=== PATIENT | female | born 1970 | race African-American/Black ===

== ENCOUNTER 2019-09-24 11:10 | Emergency (ER) | payer OTHER, SELFPAY ==
--- NOTE | ~2019-09-24 | CT_ITS ---
EXAMINATION: CT abdomen pelvis w con DATE: 09/24/2019 12:04 INDICATION: Acute epigastric pain. TECHNIQUE: Computed tomography (CT) of the abdomen and pelvis was performed with 100 mL Omnipaque 350 intravenous contrast. Automated exposure control and iterative reconstruction technique were employe d. The dose-length product was 274.44 mGy-cm. COMPARISON: None. FINDINGS: The visualized portions of the lung bases demonstrate mild atelectasis. No pleural effusion . The heart size is normal. No pericardial effusion. Partially visualized are masses in the breasts m easuring up to 2.4 cm on the left. There is diffuse hepatic steatosis. The gallbladder and spleen are normal. There are calcifications of the pancreas with dilatation of the pancreatic duct, consistent with chronic pancreatitis. There is a 3.2 x 3.0 cm mass in the head of the pancreas. The adrenal glan ds are normal. There are cysts in the kidneys measuring up to 6 mm on the left. There are no dilated loops of bowel. The appendix is normal. There are no pathologically enlarged lymph nodes. There is no free intraperitoneal fluid. There is a left inguinal hernia containing fat. There is an umbilical he rnia containing fat. There is mild lumbar spondylosis. IMPRESSION: 1. Mass in the head of the pancreas, which may be chronic pancreatitis or primary adenocarcinoma. Com parison with any prior outside imaging may be useful. 2. Bilateral breast masses, which may be benign or less likely malignant. A diagnostic mammogram is r ecommended. 3. Diffuse hepatic steatosis. 4. Umbilical hernia containing fat. Left inguinal hernia containing fat. Reviewed, dictated and finalized at location B. IMPRESSION: 1. Mass in the head of the pancreas, which may be chronic pancreatitis or prima ry adenocarcinoma. Comparison with any prior outside imaging may be useful. 2. Bilateral breast masses, which may be benign or less likely malignant. A patrizia gnostic mammogram is recommended. 3. Diffuse hepatic steatosis. 4. Umbilical hernia containing fat. Left inguinal hernia containing fat.
--- NOTE | ~2019-09-24 | XR_ITS ---
EXAMINATION: XR chest 1V portable DATE: 09/24/2019 12:51 INDICATION: Dyspnea. TECHNIQUE: A single frontal view of the chest was obtained. COMPARISON: CT abdomen and pelvis 09/24/2019 FINDINGS: The chest demonstrates clear lungs without pneumonia, pleural effusion, or pneumothorax. Th e heart size is normal. IMPRESSION: 1. No acute cardiopulmonary disease. Reviewed, dictated and finalized at location B.
[2019-09-24 11:14] VITALS: BP 158/100; PULSE 60; RESP 18; TEMP 36.8; O2SAT 100
--- NOTE | 2019-09-24 11:22 | ED.ABDPAIN ---
HPI - Abdominal Pain General Chief Complaint: Abdominal Pain Stated Complaint: acute stomach pain Time Seen by Provider: 09/24/19 11:21 Source: patient Mode of arrival: ambulatory Limitations: no limitations History of Present Illness HPI narrative: Pt presents for evaluation of abdominal pain. Patient reports middle to upper abdominal pain that began approximately 4 days ago. Pain is intermittently crampy and then sharp in nature. Mostly in the upper abdomen. Patient reports numerous episodes of nonbloody, nonbilious emesis. She states she has been unable to tolerate oral intake over the past week. Patient denies fever, chills, cough, congestion. She has had some mild diarrhea as well. No bloody stool, no mucus in the stool. Patient denies any chest pain, states she occasionally feels short of breath with the stomach pain. She denies any palpitations. Related Data Allergies Allergy/AdvReac Type Severity Reaction Status Date / Time No Known Allergies Allergy Verified 09/24/19 11:18 Review of Systems Review of Systems: Narrative: CONSTITUTIONAL: Denies fever, chills, reports feeling slightly diaphoretic yesterday. EYES: Denies visual changes, redness, or discharge. ENT: Denies rhinorrhea, congestion, sore throat, or otalgia. CARDIOVASCULAR: Denies chest pain, palpitations, or edema. RESPIRATORY: Denies cough, reports feeling short of breath at times GASTROINTESTINAL: Reports abdominal pain, nausea and vomiting as well as diarrhea GENITOURINARY: Denies dysuria or hematuria. SKIN: Denies rash or itching. MUSCULOSKELETAL: Denies back pain, joint pain, or myalgia. NEUROLOGIC: Denies headache, numbness, or weakness. [facility] Past Medical History Medical History (Updated 09/24/19 @ 16:11 by Bee Wilkins MD) Hypothyroidism Surgical History Surgical History (Updated 09/24/19 @ 11:48 by Bee Wilkins MD) No pertinent past surgical history Exam Narrative: Exam Narrative: GENERAL: Awake, alert, conversant HEAD: Normocephalic, atraumatic. EYES: PERRLA and EOMI. ENT: Nares clear, no rhinorrhea or epistaxis. Mucous membranes moist. NECK: Supple. CHEST: No respiratory distress, breathing even and non labored HEART: Regular rate, sinus rhythm ABDOMEN: Mild distention, tender to palpation in epigastrium, periumbilical area, no rebound or guarding, nonrigid EXTREMITIES: Normal range of motion. No edema. SKIN: Warm, dry, no rash. NEURO:No focal deficits. Alert and oriented x3 Course Vital Signs Vital signs: Vital Signs Temperature 36.8 C 09/24/19 11:14 Pulse Rate 60 09/24/19 11:14 Respiratory Rate 18 09/24/19 11:14 Blood Pressure 158/100 H 09/24/19 11:14 Pulse Oximetry 100 09/24/19 11:14 Temperature 36.8 C 09/24/19 11:14 Pulse Rate 64 09/24/19 16:48 Respiratory Rate 18 09/24/19 16:48 Blood Pressure 156/107 H 09/24/19 16:48 Pulse Oximetry 98 09/24/19 16:48 MDM - Abdominal Pain MDM Narrative Medical decision making narrative: Patient presented for evaluation of abdominal pain and vomiting. At the time of initial assessment, ABCs are intact and vital signs are stable. Patient is uncomfortable appearing with epigastric and periumbilical tenderness on exam. There is mild distention present without peritoneal signs. IV access obtained and labs are drawn. Laboratory results notable for mild leukocytosis, no anemia. Patient is hypokalemic, hypochloremic, mild hyponatremia as well, all likely secondary to the emesis. Elevated anion gap secondary to dehydrated state. Patient was given IV fluids, antiemetic and pain medication. Patient was given IV potassium replacement as well as IV banana bag. Patient has no known history of cancer, found to have bilateral breast masses on CT as well as mass in the head of the pancreas which is concerning for chronic pancreatitis versus primary adenocarcinoma. Patient was updated as to her the results of her imaging study, need for transfer to hep
--- NOTE | 2019-09-24 11:23 | PC.NURSE ---
Patient unable to urinate at this time, declines straight cath but will attempt again later.
[2019-09-24 11:30] LABS: Basophils Percent Auto 0.3 % (0.2-1.2); Eosinophils Percent Auto 0.4 % (0-4.4); Hematocrit 38.8 % (37.0-47.0); Hemoglobin 13.9 g/dL (12.0-15.0); Immature Granulocyte Absolute 0.09 K/mm3 (0.00-0.031); Immature Granulocyte Percent A 0.9 % (0-0.5); Immature Platelet Fraction Pct 7.8 % (0.9-11.2); Lymphocytes Absolute Auto 1.73 K/mm3 (0.9-3.2); Lymphocytes Percent Auto 16.5 % (18.3-44.2); Mean Corpuscular HGB Conc 35.8 g/dl (32-36); Mean Corpuscular Hemoglobin 29.6 pg (26-34); Mean Corpuscular Volume 82.6 fl (80-100); Mean Platelet Volume 10.2 fl (7.4-10.4); Monocytes Absolute Auto 0.7 K/mm3 (0.1-0.6); Monocytes Percent Auto 6.8 % (2.6-8.5); Neutrophils Absolute Auto 7.9 K/mm3 (1.3-6.7); Neutrophils Percent Auto 75.1 % (45.5-73.1); Platelet Count Result 147 k/mm3 (150-375); Red Cell Distribution Width 15.2 % (11.5-14.5); White Blood Count 10.5 K/mm3 (4.5-10.0)
--- NOTE | 2019-09-24 11:41 | ECG_ITS ---
Measurements Intervals [place] Rate: 70 P: 37 TX: 170 QRS: 19 QRSD: 102 T: 11 QT: 412 QTc: 447 Interpretive Statements SINUS RHYTHM NONSPECIFIC ST & T-WAVE ABNORMALITY- ANT/INF LEADS BORDERLINE ECG Electronically Signed On 09-24-2019 13:02:55 CDT by Lino Gonzalez D.O.
[2019-09-24 11:42] LABS: Alanine Aminotransferase 72 U/L (4-35); Albumin Level 4.2 g/dL (3.5-5.1); Alkaline Phosphatase 228 U/L (38-126); Anion Gap 20 mmol/L (8-16); Aspartate Amino Transferase 172 U/L (14-36); Bilirubin,Total 3.3 mg/dL (0.2-1.3); Blood Urea Nitrogen 5 mg/dL (7-17); Calcium 7.8 mg/dL (8.4-10.2); Carbon Dioxide 20 mmol/L (22-30); Chloride 88 mmol/L (98-107); Estimated CRCL calculation 83 ml/min; Estimated Glomerular Filt Rate > 60; Glucose 180 mg/dL (65-105); Lipase 178 U/L (23-300); Potassium 2.5 mmol/L (3.4-5.0); Sodium 128 mmol/L (137-145)
[2019-09-24] MEDS: ONDANSETRON INJ 4 MG/2 ML VIAL IV PUSH (11:47)
[2019-09-24] MEDS: SODIUM CHLORIDE 0.9% IV 1,000 ML 999 ML IV CONT (11:47)
[2019-09-24] MEDS: diphenhydrAMINE HCl INJ 50 MG/ML VIAL 25 MG IV PUSH (11:52)
[2019-09-24] MEDS: MORPHINE SULFATE 4 MG/ML INJ IV PUSH ×2 (11:53→13:53)
[2019-09-24 12:12] LABS: INR 1.4; Prothrombin Time 16.7 Seconds (11.1-14.7)
[2019-09-24 12:13] LABS: Partial Thromboplastin Time 32.3 SECONDS (22.3-36.8)
[2019-09-24 12:20] LABS: Troponin I < 0.012 ng/mL (0.000-0.034)
[2019-09-24 13:10] VITALS: BP 153/98; PULSE 77; RESP 23; O2SAT 100
[2019-09-24 14:02] VITALS: BP 147/92; PULSE 69; RESP 23; O2SAT 100
[2019-09-24 15:07] VITALS: BP 155/99; PULSE 64; RESP 20; O2SAT 98
[2019-09-24 15:29] LABS: Add Urine Microscopic? YES; Appearance Urine Clear (Clear); Bilirubin Urine Negative (Negative); Blood Urine 3+ (Negative); Color Urine Yellow (Yellow); Glucose Urine UA Negative (Negative); Ketones Urine 2+ mg/dL (Negative); Leukocyte Esterase Ur Negative LEU/UL (Negative); Nitrate Urine Negative (Negative); Protein Urine 1+ mg/dL (Negative); RBC Urine >75 /hpf (0-2); Squamous Epithelial Cell Urine Occasional /hpf (Few); Urobilinogen Urine Negative mg/dL (<2.0)
[2019-09-24 15:37] LABS: Specific Grav Ur 1.044 (1.001-1.035)
--- NOTE | 2019-09-24 15:37 | PC.NURSE ---
[facility] called for updates on patient, will call back with bed placement.
[2019-09-24 16:48] VITALS: BP 156/107; PULSE 64; RESP 18; O2SAT 98
--- NOTE | 2019-09-24 17:36 | PC.NURSE ---
patient report given to Mariano STOUT, Brunilda at this time. Patient going to room 2312 Bed A
[2019-09-24 18:21] LABS: Anion Gap 13 mmol/L (8-16); Blood Urea Nitrogen 4 mg/dL (7-17); Calcium 6.7 mg/dL (8.4-10.2); Carbon Dioxide 21 mmol/L (22-30); Chloride 94 mmol/L (98-107); Estimated CRCL calculation 119 ml/min; Estimated Glomerular Filt Rate > 60; Glucose 175 mg/dL (65-105); Potassium 3.3 mmol/L (3.4-5.0); Sodium 128 mmol/L (137-145)
[2019-09-24 18:44] VITALS: BP 164/107; PULSE 80; PULSE 84; RESP 17; RESP 22; O2SAT 98
--- NOTE | 2019-10-04 08:50 | PC.NURSE ---
LATE ENTRY This note is being entered to document information to the patient's record. The following information was omitted on [09/24/19], by [Radha Arellano RN. KALEIGH continued when patient was transported by EMS to [facility], no stop required].
== END 2019-09-24 18:56 | disposition short-term general hospital (02) ==
PROVIDERS: Emergency Provider Emergency Medicine; PCP Family Medicine
DX: E87.6 Hypokalemia (principal); E86.0 Dehydration; K86.9 Disease of pancreas, unspecified; E03.9 Hypothyroidism, unspecified; R94.31 Abnormal electrocardiogram [ECG] [EKG]
CPT/HCPCS: 36415; 71045; 74177; 80048; 80053; 81001; 81025; 83690; 84484; 85025; 85055; 85610; 85730; 87077; 87086; 87088; 87186; 93005; 96361; 96365; 96366; 96368; 96375; 96376; 99285; J1170; J1200; J2270; J2405; J3411; J3475; J3480; J7030; Q9967

== ENCOUNTER 2019-10-08 20:51 | Emergency (ER) | payer OTHER, SELFPAY ==
--- NOTE | ~2019-10-08 | CT_ITS ---
EXAMINATION: CT abdomen pelvis w con DATE: 10/09/2019 03:02 INDICATION: Recurrent abdominal pain. TECHNIQUE: Computed tomography (CT) of the abdomen and pelvis was performed with 100 mL Omnipaque 350 intravenous contrast. Automated exposure control and iterative reconstruction technique were employe d. The dose-length product was 275.06 mGy-cm. COMPARISON: CT abdomen and pelvis 09/24/2019 FINDINGS: The visualized portions of the lung bases demonstrate mild atelectasis. No pleural effusion . The heart size is normal. No pericardial effusion. There is diffuse hepatic steatosis. There is an internal biliary stent in expected position. There is a pancreatic stent in expected position. There is low-attenuation in the head of the pancreas with surrounding fat stranding, and there are calcific ations throughout the pancreas, consistent with acute on chronic pancreatitis. The uncinate process o f pancreas is decreased in size from the prior exam. The adrenal glands are normal. There are cysts i n the kidneys measuring up to 7 mm in the left. There is a 2.2 cm intramural fibroid in the uterus. T here are no dilated loops of bowel. The appendix is normal. There are no pathologically enlarged lymp h nodes. There is no free intraperitoneal fluid. There is a left inguinal hernia containing fat. Ther e is an umbilical hernia containing fat. There is mild thoracolumbar spondylosis. IMPRESSION: 1. Acute on chronic pancreatitis. Internal biliary stent and pancreatic stent in expected positions. 2. Diffuse hepatic steatosis. 3. Umbilical hernia containing fat. Left inguinal hernia containing fat. Reviewed, dictated and finalized at location B. IMPRESSION: 1. Acute on chronic pancreatitis. Internal biliary stent and pancreatic stent i n expected positions. 2. Diffuse hepatic steatosis. 3. Umbilical hernia containing fat. Left inguinal hernia containing fat.
[2019-10-08 21:00] VITALS: BP 110/78; PULSE 105; RESP 17; TEMP 36.2; O2SAT 100
[2019-10-09] VITALS (7 sets, daily range): BP systolic 92–108; BP diastolic 62–79; PULSE 80–96; RESP 16; TEMP 36.9; O2SAT 98–100
--- NOTE | 2019-10-09 01:04 | ED.RECABL ---
HPI - Recheck/Abnormal Lab/Rx General Chief Complaint: Recheck/Abnormal Lab/Rx Stated Complaint: low k, 2.7 Time Seen by Provider: 10/09/19 01:02 Source: patient Mode of arrival: ambulatory Limitations: no limitations History of Present Illness HPI narrative: Patient is a 49-year-old female recently diagnosed on ISM with pancreatic mass, transferred to [facility] where she had a pancreatic stent placed, who presents for evaluation of continued vomiting, abdominal pain and low potassium. Patient received results that her potassium was 2.7 and was urged to come to the emergency department by her primary care physician this evening. Patient reports an intermittent 2-week history of vomiting and diarrhea with mild abdominal pain since stent placement. She follows with hepatobiliary at [facility]. Patient denies any fever, chills, cough, weakness or numbness. Related Data Allergies Allergy/AdvReac Type Severity Reaction Status Date / Time No Known Allergies Allergy Verified 10/08/19 20:51 Review of Systems Review of Systems: Narrative: CONSTITUTIONAL: Denies fever, chills, or sweats. CARDIOVASCULAR: Denies chest pain, palpitations, or edema. RESPIRATORY: Denies cough or dyspnea. GASTROINTESTINAL: Reports abdominal pain, intermittent nausea, diarrhea, denies vomiting today GENITOURINARY: Denies dysuria or hematuria. SKIN: Denies rash or itching. MUSCULOSKELETAL: Denies back pain, joint pain, or myalgia. NEUROLOGIC: Denies headache, numbness, or weakness. [facility] Past Medical History Medical History (Updated 10/09/19 @ 06:34 by Bee Wilkins MD) Hypothyroidism Pancreatic mass Presence of pancreatic duct stent Surgical History Surgical History (Updated 09/24/19 @ 11:48 by Bee Wilkins MD) No pertinent past surgical history Social History Social History Gender identity (if verbalized by the patient): Female Exam Narrative: Exam Narrative: GENERAL: Awake, alert, conversant HEAD: Normocephalic, atraumatic. EYES: PERRLA and EOMI. ENT: Nares clear, no rhinorrhea or epistaxis. Mucous membranes moist. NECK: Supple. CHEST: No respiratory distress, breathing even and non labored HEART: Regular rate, sinus rhythm ABDOMEN: Mild distention, positive periumbilical and epigastric tenderness, positive guarding EXTREMITIES: Normal range of motion. No edema. SKIN: Warm, dry, no rash. NEURO:No focal deficits. Alert and oriented x3 Course Vital Signs Vital signs: Vital Signs Temperature 36.2 C L 10/08/19 21:00 Pulse Rate 105 H 10/08/19 21:00 Respiratory Rate 17 10/08/19 21:00 Blood Pressure 110/78 10/08/19 21:00 Pulse Oximetry 100 10/08/19 21:00 Temperature 36.9 C 10/09/19 00:38 Pulse Rate 80 10/09/19 05:53 Respiratory Rate 16 10/09/19 05:53 Blood Pressure 98/74 L 10/09/19 05:53 Pulse Oximetry 100 10/09/19 05:53 MDM - Recheck/Abnormal Lab/Rx MDM Narrative Medical decision making narrative: Patient presented for subjective fever, low potassium as called to her by her primary care provider on outpatient lab testing. Patient has been reporting abdominal pain, decreased oral intake and vomiting. Patient with stable vital signs at the time of assessment. She does have tenderness on her abdominal exam. Laboratory results notable for new leukocytosis. Improved transaminases. No hyperbilirubinemia. No elevation in lipase. Urinalysis pending. CT scan with evidence of what appeared to be normal postoperative changes since stent placement. Leukocytosis is a bit concerning especially since the patient had been reporting subjective fever. She states that she continued to have weakness and vomiting, but was able to tolerate oral potassium replenishment and then the repeat potassium had normalized to 3.5. After speaking with the patient's surgeon Dr. Joseluis Anguiano at [facility], he states he would like to observe the patient given the continued electrolyt
[2019-10-09 01:09] LABS: Basophils Absolute Auto 0.1 K/mm3 (0.0-0.1); Basophils Percent Auto 0.6 % (0.2-1.2); Eosinophils Absolute Auto 0.4 K/mm3 (0-0.3); Eosinophils Percent Auto 2.2 % (0-4.4); Immature Granulocyte Absolute 0.08 K/mm3 (0.00-0.031); Immature Granulocyte Percent A 0.5 % (0-0.5); Lymphocytes Percent Auto 20.4 % (18.3-44.2); Mean Corpuscular HGB Conc 35.5 g/dl (32-36); Mean Corpuscular Hemoglobin 30.3 pg (26-34); Mean Corpuscular Volume 85.4 fl (80-100); Mean Platelet Volume 9.2 fl (7.4-10.4); Monocytes Percent Auto 6.2 % (2.6-8.5); Neutrophils Percent Auto 70.1 % (45.5-73.1); Platelet Count Result 405 k/mm3 (150-375); Red Blood Count 3.63 M/mm3 (4.2-5.4); Red Cell Distribution Width 14.6 % (11.5-14.5); White Blood Count 15.7 K/mm3 (4.5-10.0)
[2019-10-09 01:21] LABS: Anion Gap 9 mmol/L (8-16); Blood Urea Nitrogen 2 mg/dL (7-17); Calcium 8.2 mg/dL (8.4-10.2); Carbon Dioxide 26 mmol/L (22-30); Chloride 97 mmol/L (98-107); Estimated CRCL calculation 119 ml/min; Estimated Glomerular Filt Rate > 60; Glucose 131 mg/dL (65-105); Potassium 2.9 mmol/L (3.4-5.0); Sodium 132 mmol/L (137-145)
--- NOTE | 2019-10-09 02:03 | PC.NURSE ---
Called lab to add on CMP. Lipase
[2019-10-09 02:14] LABS: Alanine Aminotransferase 20 U/L (4-35); Albumin Level 3.4 g/dL (3.5-5.1); Alkaline Phosphatase 133 U/L (38-126); Aspartate Amino Transferase 51 U/L (14-36)
[2019-10-09 02:15] LABS: Lipase < 10 U/L (23-300)
[2019-10-09] MEDS: SODIUM CHLORIDE 0.9% IV 1,000 ML 999 ML IV CONT (02:48)
[2019-10-09] MEDS: POTASSIUM CHLORIDE 20 MEQ PACKET (FOR LIQUID) 40 MEQ PO (02:48)
[2019-10-09 05:38] LABS: Anion Gap 5 mmol/L (8-16); Calcium 7.6 mg/dL (8.4-10.2); Carbon Dioxide 24 mmol/L (22-30); Chloride 104 mmol/L (98-107); Estimated CRCL calculation 119 ml/min; Estimated Glomerular Filt Rate > 60; Glucose 107 mg/dL (65-105); Potassium 3.5 mmol/L (3.4-5.0); Sodium 133 mmol/L (137-145)
[2019-10-09 05:55] LABS: Blood Urea Nitrogen < 2 mg/dL (7-17)
[2019-10-09 07:22] LABS: Add Urine Microscopic? NO; Appearance Urine Clear (Clear); Bilirubin Urine Negative (Negative); Blood Urine Negative (Negative); Color Urine Straw (Yellow); Glucose Urine UA Negative (Negative); Ketones Urine Negative (Negative); Leukocyte Esterase Ur Negative LEU/UL (Negative); Mucus Urine Rare /lpf; Nitrate Urine Negative (Negative); Protein Urine Negative (Negative); RBC Urine 0-2 /hpf (0-2); Squamous Epithelial Cell Urine Rare /hpf (Few); Urobilinogen Urine Negative mg/dL (<2.0); WBC Urine 0-3 /hpf
[2019-10-09 07:27] LABS: Specific Grav Ur 1.038 (1.001-1.035)
--- NOTE | 2019-10-09 10:33 | PC.NURSE ---
pt clear liquid diet ordered at this time.
--- NOTE | 2019-10-09 11:11 | PC.NURSE ---
OK PER DR EMERSON FOR PT TO TAKE HER OWN HOME MORNING MEDIATIONS PRIOR TO EATING CLEAR LIQUID LUNCH.
== END 2019-10-09 15:10 | disposition short-term general hospital (02) ==
PROVIDERS: Emergency Provider Emergency Medicine; PCP Family Medicine
DX: E87.6 Hypokalemia (principal); D72.829 Elevated white blood cell count, unspecified; E03.9 Hypothyroidism, unspecified
CPT/HCPCS: 36415; 74177; 80048; 80053; 81003; 83690; 85025; 96360; 99285; A9270; J7030; Q9967

== ENCOUNTER 2021-04-06 13:35 | Inpatient (IN) | payer OTHER, SELFPAY ==
[2021-04-06] VITALS (26 sets, daily range): BP systolic 105–140; BP diastolic 77–92; PULSE 97–111; RESP 9–24; TEMP 36.2–36.8; O2SAT 86–100
--- NOTE | ~2021-04-06 | XR_ITS ---
EXAMINATION: XR chest 2V DATE: 04/06/2021 17:11 INDICATION: Generalized chest pain TECHNIQUE: AP and lateral views of the chest are obtained. COMPARISON: 09/24/2019 FINDINGS: The lungs are free of acute opacities. There is no pleural effusion or pneumothorax. The ca rdiomediastinal silhouette is normal. There is mild thoracic spondylosis. IMPRESSION: 1. No acute cardiopulmonary abnormality. Reviewed, dictated and finalized at location F. SE MACHINE WORKER
--- NOTE | ~2021-04-06 | MR_ITS ---
EXAMINATION: MR lumbar spine wo con DATE: 04/08/2021 13:56 INDICATION: Weakness and leg pain TECHNIQUE: Magnetic resonance imaging (MRI) of the lumbar spine was performed without intravenous con trast. Sequences included sagittal T2-weighted FSE, sagittal T2-weighted FS FSE, sagittal T1-weighted FSE, and axial T2-weighted FSE. COMPARISON: CT abdomen and pelvis dated 04/06/2021 FINDINGS: Alignment is normal. Vertebral body heights are normal. Normal marrow signal. Discs demonstrate norm al height and signal. The conus medullaris terminates at L1-L2. There is normal signal in the caudal spinal cord. Paravertebral soft tissues are unremarkable. The following disc levels are specifically discussed: T12-L1: The disc does not extend beyond the endplate margin. There is mild bilateral facet joint oste oarthritis. There is no neural foraminal stenosis. There is no central canal stenosis. L1-L2: The disc does not extend beyond the endplate margin. There is mild to moderate bilateral facet joint osteoarthritis. There is no neural foraminal stenosis. There is no central canal stenosis. L2-L3: The disc does not extend beyond the endplate margin. There is mild bilateral facet joint osteo arthritis. There is no neural foraminal stenosis. There is no central canal stenosis. L3-L4: The disc does not extend beyond the endplate margin. There is moderate left and mild to modera te right facet joint osteoarthritis. There is no neural foraminal stenosis. There is no central canal stenosis. L4-L5: Disc is mildly bulging. There is mild to moderate bilateral facet joint osteoarthritis. There is mild bilateral neural foraminal stenosis. There is mild central canal stenosis. There is also narr owing of the left and right lateral recesses with some mass effect upon the bilateral traversing L5 n erve roots. L5-S1: Disc is minimally bulging. There is mild bilateral facet joint osteoarthritis. There is no viviana ral foraminal stenosis. There is no central canal stenosis. IMPRESSION: 1. Mild lumbar spondylosis. Reviewed, dictated and finalized at location A. RANCE PROCESSOR IMPRESSION: 1. Mild lumbar spondylosis.
--- NOTE | ~2021-04-06 | CT_ITS ---
EXAMINATION: CT abdomen pelvis w con INDICATION: Epigastric pain TECHNIQUE: Computed tomographic images of the abdomen and pelvis were obtained after the administrati on of 100 cc of Omnipaque 350 intravenous contrast. The dose-length product (DLP) was 291.00 mGy-cm. Automated exposure control and iterative reconstruction technique were employed. COMPARISON: 10/09/2019 FINDINGS: Minimal dependent atelectasis is present in the lung bases. The heart size is normal. The l iver is diffusely low in attenuation when compared with the spleen, consistent with hepatic steatosis . There is a small sliding hiatal hernia. The spleen is unremarkable. There are diffuse punctate calc ifications throughout the pancreas which is atrophic. Previously described biliary and pancreatic allie megan stents are no longer present. The gallbladder is normal. The kidneys and adrenal glands are harley l. No pathologically enlarged abdominal or pelvic lymph nodes are identified. There is no free intrap eritoneal gas or evidence of bowel obstruction. There is mild lumbar spondylosis. IMPRESSION: 1. Chronic pancreatitis. 2. Diffuse hepatic steatosis. Reviewed, dictated and finalized at location F. LE MOLDER HAND
--- NOTE | ~2021-04-06 | CT_ITS ---
EXAMINATION: CT brain wo con INDICATION: Weakness, hand tingling, and memory loss COMPARISON: None TECHNIQUE: Standard unenhanced head CT. The dose-length product (DLP) was 605.33 mGy-cm. The mA was a djusted according to patient size. Iterative reconstruction technique was employed. FINDINGS: There is no intracranial hemorrhage, acute infarction, or abnormal mass lesion. The ventric les are normal. There is no abnormal mass effect or midline shift. The mercado-white matter differentiat ion is normal. The basal cisterns are patent. The orbits are normal. The paranasal sinuses, mastoids and calvarium are normal. IMPRESSION: 1. No acute intracranial abnormality. Reviewed, dictated and finalized at location F. ING ASSOCIATE
--- NOTE | ~2021-04-06 | US_ITS ---
EXAMINATION: US venous doppler [facility] DATE: 04/08/2021 14:04 INDICATION: Lower limb pain TECHNIQUE: Grayscale ultrasound images without and with compression and Doppler ultrasound images of the bilateral lower extremity veins were obtained. COMPARISON: None. FINDINGS: The visualized portions of right common femoral vein, profunda (deep) femoral vein, femoral vein, pop liteal vein, posterior tibial veins, peroneal veins, gastrocnemius vein and greater saphenous vein ou tflow are patent. The visualized portions of left common femoral vein, profunda femoral vein, femoral vein, popliteal v ein, posterior tibial veins, peroneal veins, gastrocnemius vein and greater saphenous vein outflow ar e patent. IMPRESSION: 1. No deep venous thrombosis in either lower limb. Reviewed, dictated and finalized at location A. BREAKDOWN PROCESSOR
--- NOTE | ~2021-04-06 | MR_ITS ---
EXAMINATION: MR brain/brain stem wo/w con EXAM DATE: 04/07/2021 08:41 INDICATION: Altered mental status. TECHNIQUE: Magnetic resonance imaging (MRI) of the brain/brain stem obtained without contrast. Sagit megan T1, axial diffusion, gradient echo (T2*), T1, T2, FLAIR sequences obtained. Patient was then inj ected with 20 cc intravenous Multihance contrast. Axial and coronal postcontrast T1 weighted sequence s obtained. There is no prior study for comparison. FINDINGS: There are no areas of restricted diffusion to suggest acute infarction. There is no acute hemorrhage seen on the T2*, a hemosiderin sensitive sequence. No intraparenchymal brain mass. The ve ntricles are normal in size. There are no extra-axial collections. Flow voids are seen in the cereb ral arteries on the T2-weighted sequences consistent with their expected patency. The orbits are unr emarkable. Soft tissue is unremarkable. There are no areas of abnormal enhancement on the postcont rast images. IMPRESSION: 1. No acute intracranial findings. Reviewed, dictated and finalized at location A. UNT EXECUTIVE SOFTWARE SALES
--- NOTE | ~2021-04-06 | MR_ITS ---
EXAMINATION: MR cervical spine wo con DATE: 04/10/2021 12:03 INDICATION: Bilateral lower extremity weakness. Tingling of the hands. TECHNIQUE: Magnetic resonance imaging (MRI) of the cervical spine was performed without intravenous c ontrast. Sequences included sagittal T2-weighted FSE, sagittal T2-weighted FS FSE, sagittal T1-weight ed FSE, axial MERGE, and axial T2-weighted FSE. COMPARISON: None FINDINGS: There is 2 mm retrolisthesis of C3 on C4, C4 on C5, and C5 on C6. Vertebral body heights ar e normal. There is mildly decreased disc height at C3-C4, C4-C5, and C6-C7 and moderately decreased d isc height at C5-C6. The spinal cord signal intensity is normal. The following disc levels are specif ically discussed: C2-C3: The disc does not extend beyond the endplate margin. There is no uncovertebral joint osteoarth ritis. There is no facet joint osteoarthritis. There is no neural foraminal stenosis. There is no gloria tral canal stenosis. C3-C4: There is a central extrusion. There is mild bilateral uncovertebral joint osteoarthritis. Ther e is mild right facet joint osteoarthritis. There is mild right neural foraminal stenosis. There is m ild central canal stenosis with ventral indentation of the spinal cord. C4-C5: The disc does not extend beyond the endplate margin. There is mild bilateral uncovertebral elli nt osteoarthritis. There is moderate facet joint osteoarthritis. There is mild right neural foraminal stenosis. There is no central canal stenosis. C5-C6: The disc is bulging. There is moderate bilateral uncovertebral joint osteoarthritis. There is mild bilateral facet joint osteoarthritis. There is mild bilateral neural foraminal stenosis. There i s mild central canal stenosis. C6-C7: The disc is bulging with superimposed left central extrusion. There is mild bilateral uncovert ebral joint osteoarthritis. There is no facet joint osteoarthritis. There is mild right and moderate left neural foraminal stenosis. There is mild central canal stenosis with ventral indentation of the left side of the spinal cord. C7-T1: The disc does not extend beyond the endplate margin. There is no uncovertebral joint osteoarth ritis. There is no facet joint osteoarthritis. There is no neural foraminal stenosis. There is no gloria tral canal stenosis. IMPRESSION: 1. Moderate cervical spondylosis. Reviewed, dictated and finalized at location A. LICENSED OPERATOR
--- NOTE | ~2021-04-06 | XR_ITS ---
EXAMINATION: XR lumbar puncture diagnostic EXAM DATE: 04/12/2021 11:09 INDICATION: Lumbar puncture. TECHNIQUE: Informed consent was obtained from the patient for doing this procedure. I discussed bene fits and risks including bleeding, infection, backache and headache. Alternatives also discussed. Rad iologist Sam Pizano M.D. performed the procedure with date of pulsed dose reduction fluoroscopy, wit h fluoroscopic time of 0.1 minutes. The DAP for this procedure was 0.08 Gycm2. A total of 3 images obtained for the exam. A timeout procedure was performed. The back was prepped in standard sterile fashion with Betadine. L4-5 entry site was chosen under fluoroscopic guidance and infiltrated with 1% lidocaine. The thecal sac was then accessed from a left paracentral approach using a 3.5 22G needle. Opening pressure determined to be 9, normal. A total of 12 mL of clear cerebral spinal fluid were th en drained and placed in 4 consecutive vials which were labeled and sent to lab for analysis. There were no immediate complications. IMPRESSION: Status post fluoroscopic guided lumbar puncture. Reviewed, dictated and finalized at location A. [place] BUSINESS DEVELOPMENT MANAGER
--- NOTE | 2021-04-06 13:39 | ECG_ITS ---
Measurements Intervals [place] Rate: 108 P: 51 PA: 162 QRS: 32 QRSD: 81 T: 33 QT: 330 QTc: 443 Interpretive Statements SINUS TACHYCARDIA LOW QRS VOLTAGE IN PRECORDIAL LEADS ST-T WAVE ABNORMALITY IN ANTEROLATERAL LEADS- CONSIDER ISCHEMIA ABNORMAL ECG Electronically Signed On 04-06-2021 14:11:52 EXIT [employer]OTH AGENT by Lino Gonzalez D.O.
--- NOTE | 2021-04-06 17:01 | ED.WEAKNESS ---
HPI - Weakness General Chief complaint: Weakness <Nati Kimble PA-C - Last Filed: 04/06/21 22:10> Stated complaint: weakness, chest pain, tingle hands, memory loss <Nati Kimble PA-C - Last Filed: 04/06/21 22:10> Time Seen by Provider: 04/06/21 16:57 <Nati Kimble PA-C - Last Filed: 04/06/21 22:10> Source: patient and EMS <Nati Kimble PA-C - Last Filed: 04/06/21 22:10> Mode of arrival: EMS <GARRETT Hoffman Last Filed: 04/06/21 22:10> Limitations: altered mental status <Nati Kimble PA-C - Last Filed: 04/06/21 22:10> History of Present Illness HPI Narrative: This is a 50 year old female that presents to the ER via EMS with confusion. Patient is unsure as to why she is here. She has no complaints currently. Does report she has been more forgetful recently. Also reports she thinks her blood sugars have been fluctuating, but she is unsure what they have been running. There is no family currently to gain any more history from. Denies fever, cough, chest pain, shortness of breath, abdominal pain, vomiting, or dysuria. <Nati Kimble PA-C - Last Filed: 04/06/21 22:10> Related Data Home medications: Home Medications Medication Instructions Recorded Confirmed ergocalciferol (vitamin D2) 10/09/19 levothyroxine 10/09/19 [id number] [Creon] PO 10/09/19 <GARRETT Hoffman Last Filed: 04/06/21 22:10> Allergies/Adverse reactions: Allergies Allergy/AdvReac Type Severity Reaction Status Date / Time No Known Allergies Allergy Verified 10/08/19 20:51 <GARRETT Hoffman Last Filed: 04/06/21 22:10> Review of Systems Review of Systems: CONSTITUTIONAL: Denies fever CARDIOVASCULAR: Denies chest pain RESPIRATORY: Denies cough or dyspnea. GASTROINTESTINAL: Denies abdominal pain, nausea, vomiting GENITOURINARY: Denies dysuria <Nati Kimble PA-C - Last Filed: 04/06/21 22:10> All systems reviewed & are unremarkable except as noted in HPI and below <Nati Kimble PA-C - Last Filed: 04/06/21 22:10> PMFSH Past Medical History Medical History: Medical History (Updated 04/06/21 @ 22:07 by Nati Kimble PA-C) Hypothyroidism Pancreatic mass Presence of pancreatic duct stent <Nati Kimble PA-C - Last Filed: 04/06/21 22:10> Surgical History Surgical History: Surgical History (Updated 09/24/19 @ 11:48 by Bee Wilkins MD) No pertinent past surgical history <Nati Kimble PA-C - Last Filed: 04/06/21 22:10> Social History Social History: Social History (Updated 04/06/21 @ 17:43 by Nati Kimble PA-C) Substance use: never Gender identity (if verbalized by the patient): Female <Nati Kimble PA-C - Last Filed: 04/06/21 22:10> Exam Narrative: GENERAL: Well-appearing, well-nourished, and in no acute distress. HEAD: Normocephalic, atraumatic. EYES: PERRLA and EOMI. ENT: Nares clear, no rhinorrhea or epistaxis. Mucous membranes moist. Oropharynx without tonsillar hypertrophy exudate or other lesions. Bilateral TMs pearly mercado non-bulging NECK: Supple. No adenopathy or masses. CHEST: Clear to auscultation. No respiratory distress. No wheezes rales or rhonchi HEART: Regular rate and rhythm. No murmur heard. Normal peripheral pulses. ABDOMEN: Soft, nontender, nondistended, normal active bowel sounds. EXTREMITIES: Normal range of motion. No edema. Strength equal in bilateral upper and lower extremities (5/5) SKIN: Warm, dry, no rash. NEURO: No focal deficits. Alert and oriented x3. Cranial nerves II through XII grossly intact PSYCH: Normal mood and affect <Nati Kimble PA-C - Last Filed: 04/06/21 22:10> Course NURSE RECRUITER/PA Physician Supervision Pt seen and examined, vss, nad, RRR, ctab, soft nt/nd, awake and oriented, agree with current plan and treatment <Addi Patel MD - Last Filed: 04/06/21 22:31> Consultations Consultation #1: Spoke with hospitalist a
[2021-04-06 18:25] LABS: Basophils Absolute Auto 0.1 K/mm3 (0.0-0.1); Basophils Percent Auto 0.5 % (0.2-1.2); Eosinophils Absolute Auto 0.1 K/mm3 (0-0.3); Eosinophils Percent Auto 0.6 % (0-4.4); Hematocrit 37.3 % (37.0-47.0); Hemoglobin 13.2 g/dL (12.0-15.0); Immature Granulocyte Percent A 0.8 % (0-0.5); Lymphocytes Absolute Auto 2.97 K/mm3 (0.9-3.2); Lymphocytes Percent Auto 23.6 % (18.3-44.2); Mean Corpuscular HGB Conc 35.4 g/dl (32-36); Mean Corpuscular Hemoglobin 31.8 pg (26-34); Mean Corpuscular Volume 89.9 fl (80-100); Mean Platelet Volume 10.1 fl (7.4-10.4); Monocytes Absolute Auto 0.9 K/mm3 (0.1-0.6); Monocytes Percent Auto 7.5 % (2.6-8.5); Neutrophils Absolute Auto 8.5 K/mm3 (1.3-6.7); Platelet Count Result 320 k/mm3 (150-375); Red Blood Count 4.15 M/mm3 (4.2-5.4); Red Cell Distribution Width 14.1 % (11.5-14.5); White Blood Count 12.6 K/mm3 (4.5-10.0)
[2021-04-06 18:36] LABS: INR 1.3; Prothrombin Time 15.9 Seconds (11.1-14.7)
[2021-04-06 18:37] LABS: Partial Thromboplastin Time 36.2 SECONDS (22.3-36.8)
[2021-04-06 18:42] LABS: Lactic Acid Reflex 2.6 mmol/L (0.7-2.1)
[2021-04-06 18:42] LABS: Alanine Aminotransferase 26 U/L (4-35); Alkaline Phosphatase 123 U/L (38-126); Anion Gap 10 mmol/L (8-16); Aspartate Amino Transferase 47 U/L (14-36); Bilirubin,Total 1.7 mg/dL (0.2-1.3); Blood Urea Nitrogen 5 mg/dL (7-17); Calcium 9.2 mg/dL (8.4-10.2); Carbon Dioxide 24 mmol/L (22-30); Chloride 95 mmol/L (98-107); Estimated CRCL calculation 118 ml/min; Estimated Glomerular Filt Rate > 60; Glucose 188 mg/dL (65-110); Potassium 3.9 mmol/L (3.4-5.0); Sodium 129 mmol/L (137-145)
[2021-04-06 18:43] LABS: CRP 1.2 mg/dL (<1.0)
[2021-04-06 18:48] LABS: Troponin I < 0.012 ng/mL (0.000-0.034)
[2021-04-06] MEDS: SODIUM CHLORIDE 0.9% IV 1,000 ML 999 ML IV CONT (19:10)
[2021-04-06 19:19] LABS: Hemoglobin A1C 7.1 % (<5.7)
[2021-04-06 19:33] LABS: Lipase < 10 U/L (23-300)
[2021-04-06 20:14] LABS: Add Urine Microscopic? YES; Appearance Urine Clear (Clear); Bilirubin Urine Negative (Negative); Blood Urine Negative (Negative); Color Urine Amber (Yellow); Glucose Urine UA Negative (Negative); Ketones Urine Trace mg/dL (Negative); Leukocyte Esterase Ur Negative LEU/UL (Negative); Mucus Urine Rare /lpf; Nitrate Urine Negative (Negative); Protein Urine Negative (Negative); RBC Urine 0-2 /hpf (0-2); Specific Grav Ur 1.015 (1.001-1.035); Squamous Epithelial Cell Urine Few /hpf (Few); WBC Urine 0-3 /hpf
[2021-04-06 20:29] LABS: Amphetamine Screen Urine Negative (Negative); Barbiturate Screen Urine Negative (Negative); Benzodiazepines Screen Urine Negative (Negative); Cannabinoid Screen Urine Negative (Negative); Cocaine Screen Urine Negative (Negative); Methadone Screen Urine Negative (Negative); Opiate Screen Urine Negative (Negative); Phencyclidine Screen Urine Negative (Negative)
--- NOTE | 2021-04-06 20:35 | PC.NURSE ---
2002 Attempted to get patient to the bedside commode, patient unable to stand due to weakness. Patient assisted to bedside commode with assistance of three nurses and then assisted back to bed. Brief placed on patient.
[2021-04-06 21:21] LABS: Reflex Lactic Acid Yes or No Add Lactic
[2021-04-06 21:33] LABS: Free T4 Free Thyroxine Reflex 1.34 ng/dL (0.78-2.19)
[2021-04-06 21:49] LABS: Troponin I < 0.012 ng/mL (0.000-0.034)
--- NOTE | 2021-04-06 21:54 | PM.IMHP ---
H&P: HPI History of Present Illness Date/Time: 04/06/21 21:54 Chief Complaint: Paresthesia Narrative: This is a 50-year-old female with past medical history significant for chronic pancreatitis, type 2 diabetes mellitus, hypothyroidism. Patient presents to the emergency room due to bilateral hands tingling however at the time of my visit patient was complaining of lower back pain patient denied any of the above mention tingling. Patient denies any vision changes, headaches, gait instability, dizziness, near-syncope or syncope, no focal weakness, no numbness, no chest pain ,no PND ,no orthopnea, no leg swelling ,no nausea ,no vomiting, no diarrhea ,no abdominal pain, patient recently diagnosed with type 2 diabetes mellitus and started on metformin in the outpatient setting. Preliminary workup was significant for CT of abdomen and pelvis with chronic pancreatitis, chemistry panel was significant for a TSH of 9,000. Patient is being admitted for further evaluation management and treatment. Review of Systems Review of Systems: Patient is a very poor historian at the time of my visit he was complaining of low back pain had no other complaints. Constitutional: Constitutional: Denies chills, Denies fatigue, Denies fever(s), Denies malaise, Denies night sweats, Denies poor appetite and Denies weakness Eyes: Eyes: Denies change in vision ENT: Denies vertigo, Denies dizziness, Denies nasal congestion, Denies nasal discharge, Denies nasal obstruction and Denies odynophagia Cardiovascular: Cardiovascular: Denies chest pain, Denies pedal edema, Denies irregular heart rhythm, Denies claudication, Denies leg edema, Denies lightheadedness, Denies radiating jaw, neck or arm pain, Denies palpitations, Denies dyspnea on exertion and Denies orthopnea Respiratory: Respiratory: Denies cough and Denies wheezing Gastrointestinal: Gastrointestinal: Denies abdominal pain, Denies dyspepsia, Denies heartburn, Denies diarrhea, Denies nausea and Denies vomiting Genitourinary: Genitourinary: Denies dysuria Musculoskeletal: Musculoskeletal: Denies arthralgias, Denies joint swelling, Denies muscle weakness, Denies neck pain, Denies numbness, Denies stiffness and Reports tingling Integumentary/Breasts: Skin/Breast: Denies rash Neurologic: Denies focal weakness, Denies radicular pain, Denies Sensory deficit (Neuro) and Reports tingling Psychiatric: Psychiatric: Reports no additional psychiatric complaints and Reports as per HPI Endocrine: Endocrine: Denies cold intolerance, Denies flushing, Denies heat intolerance, Denies polyphagia, Denies polydipsia and Denies palpitations Hematologic/Lymphatic: Hematologic/Lymphatic: Reports no additional hematologic/lymphatic complaints and Reports as per HPI Allergic/Immunologic: Allergic/Immunologic: Reports no additional allergic/immunologic complaints and Reports as per HPI PMFSH Past Medical History Medical History (Updated 04/07/21 @ 02:24 by Davonte Mata MD) Hypothyroidism Pancreatic mass Presence of pancreatic duct stent Surgical History Surgical History (Updated 09/24/19 @ 11:48 by Bee Wilkins MD) No pertinent past surgical history Social History Social History (Updated 04/06/21 @ 17:43 by Nati Kimble PA-C) Substance use: never Gender identity (if verbalized by the patient): Female Meds Home Medications and Allergies Home Medications Medication Instructions Recorded Confirmed Type ergocalciferol (vitamin D2) 1,250 mcg PO DAILY 10/09/19 04/07/21 History levothyroxine 1,000 mcg PO DAILY 04/07/21 04/07/21 History [id number] [Creon] 600 cap PO DAILY 04/07/21 04/07/21 History meclizine 25 mg PO TID PRN 04/07/21 04/07/21 History metformin 1,000 mg PO DAILY 04/07/21 04/07/21 History Allergies Allergy/AdvReac Type Severity Reaction Status Date / Time No Known Allergies Allergy Verified 04/07/21 02:16 Vital Signs Vital Signs - 24 hr 04/06/21 13:39
[2021-04-06 22:31] LABS: Total Triiodothyronine (T3) 0.77 NG/ML (0.97-1.69)
[2021-04-06] MEDS: HYDROcodone/acetaminophen (*CRX) 5-325 MG TABLET 1 TAB PO (23:29)
[2021-04-06 23:39] LABS: SARS-CoV-2 RNA PCR Negative
[2021-04-06 23:40] LABS: Ethanol < 10 mg/dL (<10)
[2021-04-07] VITALS (14 sets, daily range): BP systolic 103–123; BP diastolic 72–90; PULSE 81–108; RESP 14–24; TEMP 36.3–37.2; O2SAT 99–100; BMI 22.0
--- NOTE | 2021-04-07 02:05 | ADMGEN ---
This patient, Christiano Cortez, was admitted to Medical Room 245-. Patient/family oriented to hospital policies and general routines including ID bracelet, bed and alarms, visiting hours, pain management, procedures, bathroom and other care routines, personal items, smoking policy, room service/diet, and visiting hours. Information on how to activate the Rapid Response Team has been discussed. Patient/Family are encouraged to report perceived risks to care and to ask questions if they do not understand what they are told or what they should do.
[2021-04-07 03:08] LABS: Creatine Kinase < 20 U/L (30-135)
[2021-04-07 03:21] LABS: Troponin I < 0.012 ng/mL (0.000-0.034)
[2021-04-07 07:47] LABS: Glucose Point of Care 151 mg/dl (65-105)
--- NOTE | 2021-04-07 08:11 | PC.NURSE ---
Pt to MRI per stretcher 04/07/21 [id number]
[2021-04-07 09:46] LABS: Hematocrit 32.3 % (37.0-47.0); Hemoglobin 11.7 g/dL (12.0-15.0); Mean Corpuscular HGB Conc 36.2 g/dl (32-36); Mean Corpuscular Hemoglobin 32.2 pg (26-34); Mean Platelet Volume 10.1 fl (7.4-10.4); Platelet Count Result 287 k/mm3 (150-375); Red Blood Count 3.63 M/mm3 (4.2-5.4); Red Cell Distribution Width 14.1 % (11.5-14.5); White Blood Count 11.3 K/mm3 (4.5-10.0)
[2021-04-07 10:00] LABS: Alanine Aminotransferase 22 U/L (4-35); Albumin Level 3.6 g/dL (3.5-5.1); Alkaline Phosphatase 99 U/L (38-126); Anion Gap 7 mmol/L (8-16); Aspartate Amino Transferase 36 U/L (14-36); Bilirubin,Total 1.6 mg/dL (0.2-1.3); Blood Urea Nitrogen 6 mg/dL (7-17); Calcium 8.3 mg/dL (8.4-10.2); Carbon Dioxide 24 mmol/L (22-30); Chloride 99 mmol/L (98-107); Estimated CRCL calculation 118 ml/min; Estimated Glomerular Filt Rate > 60; Glucose 156 mg/dL (65-110); Potassium 3.5 mmol/L (3.4-5.0); Sodium 130 mmol/L (137-145)
[2021-04-07 10:15] LABS: Ammonia < 9 umol/L (9-30)
[2021-04-07] MEDS: LEVOTHYROXINE SODIUM 125 MCG TABLET PO (11:11)
[2021-04-07] MEDS: ACETAMINOPHEN 500 MG TABLET 1000 MG PO (11:42)
[2021-04-07 11:53] LABS: Glucose Point of Care 264 mg/dl (65-105)
[2021-04-07 13:33] LABS: Glucose Point of Care 196 mg/dl (65-105)
--- NOTE | 2021-04-07 16:12 | P.PNIM_ITS ---
Progress Note: A&P Assessment and Plan (1) Weakness: Code(s): R53.1 - Weakness Status: Acute Assessment and Plan: Patient presented with complaints of weakness. * She states she is not able to reposition herself in bed * She does not participate in examination of the lower extremities * Appreciate PT/OT eval * Appreciate neurology consultation * Will check B12 and folate. * Implement fall precautions * Consider imaging of the lumbar spine if lower extremity weakness persists (2) Acute metabolic encephalopathy: Code(s): G93.41 - Metabolic encephalopathy Status: Acute Assessment and Plan: Resolved. Patient is A&O x4 on my encounter * Head CT showed no acute findings * Brain MRI also with no acute findings * Ammonia is normal. Check B12 and folate * No signs/symptoms to suggest acute infection * Continue to monitor mental status (3) Acidosis, lactic: Code(s): E87.2 - Acidosis Status: Acute Assessment and Plan: Resolved. * Lactic acid 2.6 on presentation * Etiology for this unclear, no evidence of infection * Improved with IV fluids to 2.0 * Metformin on hold (4) Hypothyroidism: Code(s): E03.9 - Hypothyroidism, unspecified Status: Acute Assessment and Plan: TSH is elevated at 9.99. T4 normal * Patient is on levothyroxine 125 mcg daily * She admits that she probably has not been taking her levothyroxine appropriately * At this time will not make any adjustments to her medication dosage. Discussed importance of taking this medication daily * She will need repeat reflex TSH in 4-6 weeks as an outpatient (5) Diabetes mellitus: Code(s): E11.9 - Type 2 diabetes mellitus without complications Status: Acute Assessment and Plan: Blood sugars elevated today 150-250 * Continue Accu-Cheks, moderate dose sliding scale insulin, hypoglycemic protocol * Metformin is on hold * Check A1c * Monitor blood sugars and adjust medication regimen as needed * Diabetic diet (6) Chronic pancreatitis: Code(s): K86.1 - Other chronic pancreatitis Status: Acute Assessment and Plan: CT abdomen/pelvis shows chronic pancreatitis * She does have a history of pancreatic duct stent, though this was not visualized on CT * Continue Creon. Patient takes 6000 units TID at home, though this dosage is nonformulary and she does not have anyone to bring from home * Will proceed with Creon 93046 units TID during admission Subjective Date/time seen: 04/07/21 16:12 Interval history: Date of service: 04/07/2021 Christiano Cortez is a 50-year-old female with a history of pancreatic mass with pancreatic stent in place as well as hypothyroidism who is seen in follow-up for increased weakness. The patient is a poor historian and seems to perseverate on the same details. She starts by saying she has numbness in her hands and in her knees all the way down to her feet. She then tells me she is feeling very frustrated and she does not want to talk now because she does not want to say something that she does not mean. She cannot elaborate on why she is feeling frustrated. She then states that he has numbness all in her buttocks and she needs to reposition to get circulation. She also complains of numbness in her legs and she feels that she cannot flex her knees to reposition her legs to get circulation to them. She denies feeling dizzy or lightheaded. She denies shortness of breath. No chest pain. S she is not really able to say if she has been up and out o
--- NOTE | 2021-04-07 16:12 | PM.IMPN ---
Progress Note: A&P Assessment and Plan (1) Weakness: Code(s): R53.1 - Weakness Status: Acute Assessment and Plan: Patient presented with complaints of weakness. She states she is not able to reposition herself in bed She does not participate in examination of the lower extremities Appreciate PT/OT eval Appreciate neurology consultation Will check B12 and folate. Implement fall precautions Consider imaging of the lumbar spine if lower extremity weakness persists (2) Acute metabolic encephalopathy: Code(s): G93.41 - Metabolic encephalopathy Status: Acute Assessment and Plan: Resolved. Patient is A&O x4 on my encounter Head CT showed no acute findings Brain MRI also with no acute findings Ammonia is normal. Check B12 and folate No signs/symptoms to suggest acute infection Continue to monitor mental status (3) Acidosis, lactic: Code(s): E87.2 - Acidosis Status: Acute Assessment and Plan: Resolved. Lactic acid 2.6 on presentation Etiology for this unclear, no evidence of infection Improved with IV fluids to 2.0 Metformin on hold (4) Hypothyroidism: Code(s): E03.9 - Hypothyroidism, unspecified Status: Acute Assessment and Plan: TSH is elevated at 9.99. T4 normal Patient is on levothyroxine 125 mcg daily She admits that she probably has not been taking her levothyroxine appropriately At this time will not make any adjustments to her medication dosage. Discussed importance of taking this medication daily She will need repeat reflex TSH in 4-6 weeks as an outpatient (5) Diabetes mellitus: Code(s): E11.9 - Type 2 diabetes mellitus without complications Status: Acute Assessment and Plan: Blood sugars elevated today 150-250 Continue Accu-Cheks, moderate dose sliding scale insulin, hypoglycemic protocol Metformin is on hold Check A1c Monitor blood sugars and adjust medication regimen as needed Diabetic diet (6) Chronic pancreatitis: Code(s): K86.1 - Other chronic pancreatitis Status: Acute Assessment and Plan: CT abdomen/pelvis shows chronic pancreatitis She does have a history of pancreatic duct stent, though this was not visualized on CT Continue Creon. Patient takes 6000 units TID at home, though this dosage is nonformulary and she does not have anyone to bring from home Will proceed with Creon 49356 units TID during admission Subjective Date/time seen: 04/07/21 16:12 Interval history: Date of service: 04/07/2021 Christiano Cortez is a 50-year-old female with a history of pancreatic mass with pancreatic stent in place as well as hypothyroidism who is seen in follow-up for increased weakness. The patient is a poor historian and seems to perseverate on the same details. She starts by saying she has numbness in her hands and in her knees all the way down to her feet. She then tells me she is feeling very frustrated and she does not want to talk now because she does not want to say something that she does not mean. She cannot elaborate on why she is feeling frustrated. She then states that he has numbness all in her buttocks and she needs to reposition to get circulation. She also complains of numbness in her legs and she feels that she cannot flex her knees to reposition her legs to get circulation to them. She denies feeling dizzy or lightheaded. She denies shortness of breath. No chest pain. S she is not really able to say if she has been up and out of bed today. When I asked her if she has been urinating, she tells me that she has no desire to pee. She states she has been eating well, but she did have a full lunch tray next to her. I asked her if she had been taking all of her medication and she at 1st said yes, then she explained that she has been ill and bedridden for a while and she probably has missed some of her medications. She cannot elaborate on why she has
[2021-04-07 16:36] LABS: Glucose Point of Care 250 mg/dl (65-105)
[2021-04-07] MEDS: INSULIN ASPART (*BKC) 100 UNITS/ML SUB-Q (17:42)
[2021-04-07] MEDS: LIPASE/AMYLASE/PROTEASE 12,000 UNITS CAP 1 CAP PO (17:43)
[2021-04-07 18:07] LABS: Glucose Point of Care 229 mg/dl (65-105)
[2021-04-07 22:17] LABS: Glucose Point of Care 146 mg/dl (65-105)
[2021-04-07] MEDS: MELATONIN 5 MG TABLET PO (22:58)
[2021-04-08] VITALS (10 sets, daily range): BP systolic 98–105; BP diastolic 63–75; PULSE 89–103; RESP 14–18; TEMP 36.7–37; O2SAT 98–100
--- NOTE | 2021-04-08 00:47 | PC.NURSE ---
pt states she needs repositioned because she is unable to move her legs. This nurse applied light touch to bottoms of feet and pt rapidly made major lower extremity movement away from touch. Pt was educated on coping skills and motivation.
[2021-04-08] MEDS: QUEtiapine FUMARATE 12.5 MG TABLET PO (02:25)
--- NOTE | 2021-04-08 02:36 | ECG_ITS ---
Measurements Intervals [place] Rate: 89 P: -5 MD: 152 QRS: 23 QRSD: 89 T: 8 QT: 371 QTc: 452 Interpretive Statements SINUS RHYTHM BORDERLINE ST-T WAVE ABNORMALITY- ANTEROLAT/INF LEADS BASELINE ARTIFACT- I, III BORDERLINE ECG Electronically Signed On 04-08-2021 6:26:53 BIRTH CERTIFICATE CLERK by Lino Gonzalez D.O.
--- NOTE | 2021-04-08 02:39 | PC.NURSE ---
pt c/o chest tightness and increased difficulty breathing, Dr Toro notified of new symptoms, orders received. Pt requested medication for anxiety prior to new symptoms, seroquel given at this time.
[2021-04-08 03:35] LABS: Troponin I < 0.012 ng/mL (0.000-0.034)
[2021-04-08] MEDS: LEVOTHYROXINE SODIUM 125 MCG TABLET PO (05:58)
[2021-04-08 06:08] LABS: Hematocrit 30.4 % (37.0-47.0); Hemoglobin 10.8 g/dL (12.0-15.0); Mean Corpuscular HGB Conc 35.5 g/dl (32-36); Mean Corpuscular Hemoglobin 31.9 pg (26-34); Mean Corpuscular Volume 89.7 fl (80-100); Platelet Count Result 237 k/mm3 (150-375); Red Blood Count 3.39 M/mm3 (4.2-5.4); Red Cell Distribution Width 14.1 % (11.5-14.5); White Blood Count 9.7 K/mm3 (4.5-10.0)
[2021-04-08 06:29] LABS: Anion Gap 8 mmol/L (8-16); Blood Urea Nitrogen 5 mg/dL (7-17); Calcium 8.8 mg/dL (8.4-10.2); Carbon Dioxide 25 mmol/L (22-30); Chloride 100 mmol/L (98-107); Estimated CRCL calculation 118 ml/min; Estimated Glomerular Filt Rate > 60; Glucose 144 mg/dL (65-110); Potassium 3.3 mmol/L (3.4-5.0); Sodium 133 mmol/L (137-145)
[2021-04-08 06:32] LABS: Troponin I < 0.012 ng/mL (0.000-0.034)
[2021-04-08 07:05] LABS: Hemoglobin A1C 6.9 % (<5.7)
[2021-04-08 07:26] LABS: Folic Acid 4.4 ng/mL (2.76->20)
[2021-04-08 08:02] LABS: Glucose Point of Care 150 mg/dl (65-105)
[2021-04-08] MEDS: POTASSIUM CHLORIDE 20 MEQ TABLET 40 MEQ PO (08:29)
[2021-04-08] MEDS: LIPASE/AMYLASE/PROTEASE 12,000 UNITS CAP 1 CAP PO ×3 (08:29→16:10)
[2021-04-08 09:07] LABS: Troponin I < 0.012 ng/mL (0.000-0.034)
--- NOTE | 2021-04-08 09:33 | P.PNIM_ITS ---
Progress Note: A&P Assessment and Plan (1) Weakness: Code(s): R53.1 - Weakness Status: Acute Assessment and Plan: Patient presented with complaints of weakness. * She states she is not able to reposition herself in bed * She does not participate in examination of the lower extremities * Appreciate PT/OT eval * B12 and folate WNL * Implement fall precautions * will check MRI lumbar spine * neuro not available for consults this week * possibly malingering?? will continue to clear medically and obtain more information from her daughter who lives with her. Consider psych consult/referral. (2) Acute metabolic encephalopathy: Code(s): G93.41 - Metabolic encephalopathy Status: Acute Assessment and Plan: Resolved. Patient is A&O x4 on my encounter * Head CT showed no acute findings * Brain MRI also with no acute findings * Ammonia is normal. B12 and folate also normal. * No signs/symptoms to suggest acute infection (3) Acidosis, lactic: Code(s): E87.2 - Acidosis Status: Acute Assessment and Plan: Resolved. * Lactic acid 2.6 on presentation * Etiology for this unclear, no evidence of infection, likely secondary to dehydration * Improved with IV fluids to 2.0 * Metformin on hold (4) Hypothyroidism: Code(s): E03.9 - Hypothyroidism, unspecified Status: Acute Assessment and Plan: TSH is elevated at 9.99. T4 normal * Patient is on levothyroxine 125 mcg daily * She admits that she probably has not been taking her levothyroxine appropriately * At this time will not make any adjustments to her medication dosage. Discussed importance of taking this medication daily * She will need repeat reflex TSH in 4-6 weeks as an outpatient (5) Diabetes mellitus: Code(s): E11.9 - Type 2 diabetes mellitus without complications Status: Acute Assessment and Plan: Blood sugars elevated today 150-250 * Continue Accu-Cheks, moderate dose sliding scale insulin, hypoglycemic protocol * Metformin is on hold * A1c 6.9 * Monitor blood sugars and adjust medication regimen as needed * Diabetic diet * paraesthesias secondary to untreated DM?? (6) Chronic pancreatitis: Code(s): K86.1 - Other chronic pancreatitis Status: Acute Assessment and Plan: CT abdomen/pelvis shows chronic pancreatitis * She does have a history of pancreatic duct stent, though this was not vi sualized on CT * Continue Creon. Patient takes 6000 units TID at home, though this dosage is nonformulary and she does not have anyone to bring from home * Will proceed with Creon 62112 units TID during admission (7) Bilateral leg paresthesia: Code(s): R20.2 - Paresthesia of skin Status: Acute Assessment and Plan: -pt reports numbness but then also reports pain with palpation of her lower extremities. Also jerks them out of the way and states she can feel me touching her with only light touch. She is somewhat uncooperative with my exam. Admits that she may have more tingling and pain than true numbness. -check venous dopplers due to ttp -possibly from untreated DM?? A1c 6.9, very recent diagnosis for her. Unclear if she has been taking her Metformin Subjective Date/time seen: 04/08/21 09:33 Interval history: Christiano Cortez is a 50-year-old female with a history of pancreatic mass with pancreatic stent in place as well as hypothyroidism who is seen in follow-up for increased weakness. The
--- NOTE | 2021-04-08 09:33 | PM.IMPN ---
Progress Note: A&P Assessment and Plan (1) Weakness: Code(s): R53.1 - Weakness Status: Acute Assessment and Plan: Patient presented with complaints of weakness. She states she is not able to reposition herself in bed She does not participate in examination of the lower extremities Appreciate PT/OT eval B12 and folate WNL Implement fall precautions will check MRI lumbar spine neuro not available for consults this week possibly malingering?? will continue to clear medically and obtain more information from her daughter who lives with her. Consider psych consult/referral. (2) Acute metabolic encephalopathy: Code(s): G93.41 - Metabolic encephalopathy Status: Acute Assessment and Plan: Resolved. Patient is A&O x4 on my encounter Head CT showed no acute findings Brain MRI also with no acute findings Ammonia is normal. B12 and folate also normal. No signs/symptoms to suggest acute infection (3) Acidosis, lactic: Code(s): E87.2 - Acidosis Status: Acute Assessment and Plan: Resolved. Lactic acid 2.6 on presentation Etiology for this unclear, no evidence of infection, likely secondary to dehydration Improved with IV fluids to 2.0 Metformin on hold (4) Hypothyroidism: Code(s): E03.9 - Hypothyroidism, unspecified Status: Acute Assessment and Plan: TSH is elevated at 9.99. T4 normal Patient is on levothyroxine 125 mcg daily She admits that she probably has not been taking her levothyroxine appropriately At this time will not make any adjustments to her medication dosage. Discussed importance of taking this medication daily She will need repeat reflex TSH in 4-6 weeks as an outpatient (5) Diabetes mellitus: Code(s): E11.9 - Type 2 diabetes mellitus without complications Status: Acute Assessment and Plan: Blood sugars elevated today 150-250 Continue Accu-Cheks, moderate dose sliding scale insulin, hypoglycemic protocol Metformin is on hold A1c 6.9 Monitor blood sugars and adjust medication regimen as needed Diabetic diet paraesthesias secondary to untreated DM?? (6) Chronic pancreatitis: Code(s): K86.1 - Other chronic pancreatitis Status: Acute Assessment and Plan: CT abdomen/pelvis shows chronic pancreatitis She does have a history of pancreatic duct stent, though this was not visualized on CT Continue Creon. Patient takes 6000 units TID at home, though this dosage is nonformulary and she does not have anyone to bring from home Will proceed with Creon 37167 units TID during admission (7) Bilateral leg paresthesia: Code(s): R20.2 - Paresthesia of skin Status: Acute Assessment and Plan: -pt reports numbness but then also reports pain with palpation of her lower extremities. Also jerks them out of the way and states she can feel me touching her with only light touch. She is somewhat uncooperative with my exam. Admits that she may have more tingling and pain than true numbness. -check venous dopplers due to ttp -possibly from untreated DM?? A1c 6.9, very recent diagnosis for her. Unclear if she has been taking her Metformin Subjective Date/time seen: 04/08/21 09:33 Interval history: Christiano Cortez is a 50-year-old female with a history of pancreatic mass with pancreatic stent in place as well as hypothyroidism who is seen in follow-up for increased weakness. The patient is a poor historian and is somewhat uncooperative with history and examination. She reports numbness and weakness in her arms and legs, however when I go to examine her lower extremities, she jerks her legs away from me and tells me to stop touching them. States her heels are losing sensation from laying on her back all day long. She states she doesn't remember if she has tried to get up to the bathroom and out of bed with therapy. At first she says she thinks she di
--- NOTE | 2021-04-08 10:57 | PCPTNOTE ---
Patient refused treatment this session. Patient reported she wants to sleep and not right now.
[2021-04-08 12:21] LABS: Glucose Point of Care 147 mg/dl (65-105)
--- NOTE | 2021-04-08 13:30 | PC.NURSE ---
Attempted to call report to [facility] again. I have been on hold for 18 minutes with no answer from a nurse.
--- NOTE | 2021-04-08 13:36 | PCOTNOTE ---
Patient unavailable, in MRI. Will continue OT per plan of care.
[2021-04-08 16:49] LABS: Glucose Point of Care 151 mg/dl (65-105)
[2021-04-08] MEDS: hydrOXYzine HCL 12.5 MG TABLET PO ×2 (18:41→23:15)
[2021-04-08] MEDS: MELATONIN 5 MG TABLET PO (22:21)
[2021-04-08] MEDS: MECLIZINE HCL 25 MG TABLET PO (22:21)
[2021-04-08 22:25] LABS: Glucose Point of Care 174 mg/dl (65-105)
[2021-04-08] MEDS: ACETAMINOPHEN 325 MG TABLET 650 MG PO (23:42)
[2021-04-09] VITALS (9 sets, daily range): BP systolic 93–111; BP diastolic 53–67; PULSE 86–113; RESP 14–21; TEMP 36.2–37.1; O2SAT 99–100
--- NOTE | 2021-04-09 00:23 | PC.NURSE ---
Pt frequently telling staff that this nurse is her neighbor that she does not like. This nurse and other staff members have informed the patient multiple times that this is false. Pt has been AOx3 during shift, but does exhibit odd affect and frequently repetitive multiple anxious complaints.
[2021-04-09 06:14] LABS: Basophils Percent Auto 0.4 % (0.2-1.2); Eosinophils Absolute Auto 0.2 K/mm3 (0-0.3); Eosinophils Percent Auto 1.4 % (0-4.4); Hematocrit 31.1 % (37.0-47.0); Hemoglobin 11.1 g/dL (12.0-15.0); Immature Granulocyte Absolute 0.08 K/mm3 (0.00-0.031); Immature Granulocyte Percent A 0.7 % (0-0.5); Lymphocytes Absolute Auto 3.16 K/mm3 (0.9-3.2); Lymphocytes Percent Auto 29.2 % (18.3-44.2); Mean Corpuscular HGB Conc 35.7 g/dl (32-36); Mean Corpuscular Hemoglobin 31.8 pg (26-34); Mean Corpuscular Volume 89.1 fl (80-100); Mean Platelet Volume 10.4 fl (7.4-10.4); Monocytes Absolute Auto 0.8 K/mm3 (0.1-0.6); Monocytes Percent Auto 7.5 % (2.6-8.5); Neutrophils Absolute Auto 6.6 K/mm3 (1.3-6.7); Neutrophils Percent Auto 60.8 % (45.5-73.1); Platelet Count Result 249 k/mm3 (150-375); Red Blood Count 3.49 M/mm3 (4.2-5.4); Red Cell Distribution Width 14.3 % (11.5-14.5); White Blood Count 10.8 K/mm3 (4.5-10.0)
[2021-04-09 06:22] LABS: Alanine Aminotransferase 18 U/L (4-35); Albumin Level 3.5 g/dL (3.5-5.1); Alkaline Phosphatase 84 U/L (38-126); Anion Gap 12 mmol/L (8-16); Aspartate Amino Transferase 30 U/L (14-36); Bilirubin,Total 1.1 mg/dL (0.2-1.3); Blood Urea Nitrogen 5 mg/dL (7-17); Calcium 8.7 mg/dL (8.4-10.2); Carbon Dioxide 22 mmol/L (22-30); Chloride 101 mmol/L (98-107); Estimated CRCL calculation 118 ml/min; Estimated Glomerular Filt Rate > 60; Glucose 161 mg/dL (65-110); Magnesium 1.5 mg/dL (1.6-2.3); Potassium 3.2 mmol/L (3.4-5.0); Sodium 135 mmol/L (137-145)
[2021-04-09] MEDS: LEVOTHYROXINE SODIUM 125 MCG TABLET PO (06:33)
--- NOTE | 2021-04-09 06:34 | PC.NURSE ---
When entering pt room to give medication pt was observed using cellphone without any difficulty or impairment of any kind, pt immediately put phone aside and then appeared to have severe impairment when attempting to grasp/hold med cup and water cup. Pt assisted with med cup and water.
[2021-04-09 07:29] LABS: Lipase < 10 U/L (23-300)
[2021-04-09 07:52] LABS: Glucose Point of Care 147 mg/dl (65-105)
[2021-04-09] MEDS: POTASSIUM CHLORIDE 20 MEQ TABLET.ER PO ×2 (09:06→16:57)
[2021-04-09] MEDS: LIPASE/AMYLASE/PROTEASE 12,000 UNITS CAP 1 CAP PO ×3 (09:06→16:57)
--- NOTE | 2021-04-09 09:07 | P.PNIM_ITS ---
Progress Note: A&P Assessment and Plan (1) Weakness: Code(s): R53.1 - Weakness Status: Acute Assessment and Plan: Patient presented with complaints of weakness. * She states she is not able to reposition herself in bed * B12 and folate WNL * MRI L spine w/ mild spondylosis, otherwise unremarkable * I have witnessed her moving her legs when I squeeze on her calves or feet, complains of pain * Appreciate PT/OT eval however patient refuses at times * neuro not available for consults this week * possibly malingering vs hysteria vs conversion disorder vs schizophrenia?? * discussed case with attending physician Dr. Lamb who evaluated patient and also agrees there may be a psych component * discussed case w/ psychiatrist Dr. Kessler. He will see her tomorrow. (2) Acute metabolic encephalopathy: Code(s): G93.41 - Metabolic encephalopathy Status: Acute Assessment and Plan: Resolved. Patient is A&O x4 on my encounter * Head CT showed no acute findings * Brain MRI also with no acute findings * Ammonia is normal. B12 and folate also normal. * No signs/symptoms to suggest acute infection (3) Acidosis, lactic: Code(s): E87.2 - Acidosis Status: Acute Assessment and Plan: Resolved. * Lactic acid 2.6 on presentation * Etiology for this unclear, no evidence of infection, likely secondary to dehydration * Improved with IV fluids to 2.0 * Metformin on hold (4) Hypothyroidism: Code(s): E03.9 - Hypothyroidism, unspecified Status: Acute Assessment and Plan: TSH is elevated at 9.99. T4 normal * Patient is on levothyroxine 125 mcg daily * She admits that she probably has not been taking her levothyroxine appropriately * At this time will not make any adjustments to her medication dosage. Discussed importance of taking this medication daily * She will need repeat reflex TSH in 4-6 weeks as an outpatient (5) Diabetes mellitus: Code(s): E11.9 - Type 2 diabetes mellitus without complications Status: Acute Assessment and Plan: Blood sugars elevated today 150-250 * Continue Accu-Cheks, moderate dose sliding scale insulin, hypoglycemic protocol * Metformin is on hold * A1c 6.9 * Monitor blood sugars and adjust medication regimen as needed * Diabetic diet * paraesthesias secondary to untreated DM?? (6) Chronic pancreatitis: Code(s): K86.1 - Other chronic pancreatitis Status: Acute Assessment and Plan: CT abdomen/pelvis shows chronic pancreatitis * She does have a history of pancreatic duct stent, though this was not visualized on CT * Continue Creon. Patient takes 6000 units TID at home, though this dosage is nonformulary and she does not have anyone to bring from home * Will proceed with Creon 90677 units TID during admission (7) Bilateral leg paresthesia: Code(s): R20.2 - Paresthesia of skin Status: Acute Assessment and Plan: -pt reports numbness but then also reports pain with palpation of her lower extremities. Also jerks them out of the way and states she can feel me touching her with only light touch. She is somewhat uncooperative with my exam. Admits that she may have more tingling and pain than true numbness. -venous dopplers negative -possibly from untreated DM?? A1c 6.9, very recent diagnosis for her. Unclear if she has been taking her Metformin. Today she states she was not diagnosed with DM until being admitted here which seems unlikely as she had a metformin p
--- NOTE | 2021-04-09 09:07 | PM.IMPN ---
Progress Note: A&P Assessment and Plan (1) Weakness: Code(s): R53.1 - Weakness Status: Acute Assessment and Plan: Patient presented with complaints of weakness. She states she is not able to reposition herself in bed B12 and folate WNL MRI L spine w/ mild spondylosis, otherwise unremarkable I have witnessed her moving her legs when I squeeze on her calves or feet, complains of pain Appreciate PT/OT eval however patient refuses at times neuro not available for consults this week possibly malingering vs hysteria vs conversion disorder vs schizophrenia?? discussed case with attending physician Dr. Lamb who evaluated patient and also agrees there may be a psych component discussed case w/ psychiatrist Dr. Kessler. He will see her tomorrow. (2) Acute metabolic encephalopathy: Code(s): G93.41 - Metabolic encephalopathy Status: Acute Assessment and Plan: Resolved. Patient is A&O x4 on my encounter Head CT showed no acute findings Brain MRI also with no acute findings Ammonia is normal. B12 and folate also normal. No signs/symptoms to suggest acute infection (3) Acidosis, lactic: Code(s): E87.2 - Acidosis Status: Acute Assessment and Plan: Resolved. Lactic acid 2.6 on presentation Etiology for this unclear, no evidence of infection, likely secondary to dehydration Improved with IV fluids to 2.0 Metformin on hold (4) Hypothyroidism: Code(s): E03.9 - Hypothyroidism, unspecified Status: Acute Assessment and Plan: TSH is elevated at 9.99. T4 normal Patient is on levothyroxine 125 mcg daily She admits that she probably has not been taking her levothyroxine appropriately At this time will not make any adjustments to her medication dosage. Discussed importance of taking this medication daily She will need repeat reflex TSH in 4-6 weeks as an outpatient (5) Diabetes mellitus: Code(s): E11.9 - Type 2 diabetes mellitus without complications Status: Acute Assessment and Plan: Blood sugars elevated today 150-250 Continue Accu-Cheks, moderate dose sliding scale insulin, hypoglycemic protocol Metformin is on hold A1c 6.9 Monitor blood sugars and adjust medication regimen as needed Diabetic diet paraesthesias secondary to untreated DM?? (6) Chronic pancreatitis: Code(s): K86.1 - Other chronic pancreatitis Status: Acute Assessment and Plan: CT abdomen/pelvis shows chronic pancreatitis She does have a history of pancreatic duct stent, though this was not visualized on CT Continue Creon. Patient takes 6000 units TID at home, though this dosage is nonformulary and she does not have anyone to bring from home Will proceed with Creon 17958 units TID during admission (7) Bilateral leg paresthesia: Code(s): R20.2 - Paresthesia of skin Status: Acute Assessment and Plan: -pt reports numbness but then also reports pain with palpation of her lower extremities. Also jerks them out of the way and states she can feel me touching her with only light touch. She is somewhat uncooperative with my exam. Admits that she may have more tingling and pain than true numbness. -venous dopplers negative -possibly from untreated DM?? A1c 6.9, very recent diagnosis for her. Unclear if she has been taking her Metformin. Today she states she was not diagnosed with DM until being admitted here which seems unlikely as she had a metformin prescription. Subjective Date/time seen: 04/09/21 09:07 Interval history: Christiano Cortez is a 50-year-old female with a history of pancreatic mass with pancreatic stent in place as well as hypothyroidism who is seen in follow-up for increased weakness. The patient is a poor historian and frequently changes answers to the same questions. Today patient feels about the same. She states she doesn't remember if she got up with therapy yesterd
[2021-04-09 12:04] LABS: Glucose Point of Care 178 mg/dl (65-105)
[2021-04-09 16:43] LABS: Glucose Point of Care 177 mg/dl (65-105)
--- NOTE | 2021-04-09 18:06 | PC.NURSE ---
Dr Jorge Kessler with psychiatric care came to evaluate the patient and the patient states that she is refusing the consult. Dr. Kessler called the Hospitalist Tamika Mirza and updated her on what happened.
[2021-04-09 18:22] LABS: Hepatitis B Surface Antigen Negative (Negative)
[2021-04-09 18:27] LABS: HAV RESULT Negative (Negative); Hepatitis B Core IgM Result Negative (Negative)
[2021-04-09 18:30] LABS: HIV 1/2 Ab P24 Ag Result Negative (Negative)
[2021-04-09 18:39] LABS: Hepatitis C Virus Antibody Negative (Negative)
[2021-04-09] MEDS: MELATONIN 5 MG TABLET PO (21:27)
[2021-04-09 21:29] LABS: Glucose Point of Care 190 mg/dl (65-105)
[2021-04-10] VITALS (9 sets, daily range): BP systolic 100–115; BP diastolic 70–77; PULSE 96–110; RESP 14–21; TEMP 36.1–36.5; O2SAT 100
[2021-04-10 05:06] LABS: Hematocrit 30.9 % (37.0-47.0); Hemoglobin 10.7 g/dL (12.0-15.0); Mean Corpuscular HGB Conc 34.6 g/dl (32-36); Mean Corpuscular Hemoglobin 32.1 pg (26-34); Mean Corpuscular Volume 92.8 fl (80-100); Mean Platelet Volume 9.6 fl (7.4-10.4); Platelet Count Result 223 k/mm3 (150-375); Red Blood Count 3.33 M/mm3 (4.2-5.4); Red Cell Distribution Width 14.2 % (11.5-14.5); White Blood Count 12.7 K/mm3 (4.5-10.0)
[2021-04-10 05:19] LABS: Anion Gap 8 mmol/L (8-16); Blood Urea Nitrogen 7 mg/dL (7-17); Calcium 8.8 mg/dL (8.4-10.2); Carbon Dioxide 24 mmol/L (22-30); Chloride 102 mmol/L (98-107); Estimated CRCL calculation 118 ml/min; Estimated Glomerular Filt Rate > 60; Glucose 160 mg/dL (65-110); Potassium 3.7 mmol/L (3.4-5.0); Sodium 134 mmol/L (137-145)
[2021-04-10] MEDS: LEVOTHYROXINE SODIUM 125 MCG TABLET PO (06:16)
[2021-04-10 07:50] LABS: Glucose Point of Care 163 mg/dl (65-105)
[2021-04-10] MEDS: POTASSIUM CHLORIDE 20 MEQ TABLET.ER PO ×2 (08:43→16:43)
[2021-04-10] MEDS: LIPASE/AMYLASE/PROTEASE 12,000 UNITS CAP 1 CAP PO ×3 (08:43→16:43)
[2021-04-10] MEDS: ENOXAPARIN 40 MG/0.4 ML SYRINGE SUB-Q (08:50)
--- NOTE | 2021-04-10 09:47 | P.PNIM_ITS ---
Progress Note: A&P Assessment and Plan (1) Weakness: Code(s): R53.1 - Weakness <Tamika Mirza PA-C - Last Filed: 04/10/21 16:26> Status: Acute <Tamika Mirza PA-C - Last Filed: 04/10/21 16:26> Assessment and Plan: Patient presented with complaints of weakness. * She states she is not able to reposition herself in bed, states she was crawling at home to get around * B12 and folate WNL * MRI L spine w/ mild spondylosis, otherwise unremarkable * I have witnessed her moving her legs when I squeeze on her calves or feet, complains of pain. Also jerks legs back when trying to do babinski which was negative bilaterally. * Appreciate PT/OT eval however patient refuses at times * neuro not available for consults this week * possibly malingering vs hysteria vs conversion disorder vs schizophrenia?? * discussed case with attending physician Dr. Lamb who evaluated patient and also agrees there is likely a psych component * discussed case w/ psychiatrist Dr. Kessler. I asked patient if she was okay speaking with him and she agreed. Several hours later he came in to see her and she refused to speak with him. Today she states she does not remember this happening. Furthermore she reports she has her own psychiatrist but does not remember her name and cannot delineate at first what she sees him for. When prompted with anxiety, depression, bipolar, schizophrenia, she states she thinks anxiety and takes offense to being asked if she has bipolar disorder or schizophrenia. <Tamika Mirza PA-C - Last Filed: 04/10/21 16:26> (2) Acute metabolic encephalopathy: Code(s): G93.41 - Metabolic encephalopathy <GARRETT Dickerson Last Filed: 04/10/21 16:26> Status: Acute <Tamika Mirza PA-C - Last Filed: 04/10/21 16:26> Assessment and Plan: * Head CT showed no acute findings * Brain MRI also with no acute findings * Ammonia is normal. B12 and folate also normal. * No signs/symptoms to suggest acute infection * unclear whether there is truly memory loss/confusion or patient has some psychiatric issues going on * discussed with psychiatrist who recommends completing a mini mental status exam * she is a/ox 3-4 but takes a lot of time and contemplating to answer these questions <GARRETT Dickerson Last Filed: 04/10/21 16:26> (3) Acidosis, lactic: Code(s): E87.2 - Acidosis <GARRETT Dickerson Last Filed: 04/10/21 16:26> Status: Acute <GARRETT Dickerson Last Filed: 04/10/21 16:26> Assessment and Plan: Resolved. * Lactic acid 2.6 on presentation * Etiology for this unclear, no evidence of infection, likely secondary to dehydration * Improved with IV fluids to 2.0 * Metformin on hold <GARRETT Dickerson Last Filed: 04/10/21 16:26> (4) Hypothyroidism: Code(s): E03.9 - Hypothyroidism, unspecified <GARRETT Dickerson Last Filed: 04/10/21 16:26> Status: Acute <GARRETT Dickerson Last Filed: 04/10/21 16:26> Assessment and Plan: TSH is elevated at 9.99. T4 normal * Patient is on levothyroxine 125 mcg daily * She admits that she probably has not been taking her levothyroxine appropriately * At this time will not make any adjustments to her medication dosage. Discussed importance of taking this medication daily * She will need repeat reflex TSH in 4-6 weeks as an outpatient <GARRETT Dickerson Last Filed: 04/10/21 16:26> (5) Diabetes mellitus: Code(s): E11.
--- NOTE | 2021-04-10 09:47 | PM.IMPN ---
Progress Note: A&P Assessment and Plan (1) Weakness: Code(s): R53.1 - Weakness <Tamika Mirza PA-C - Last Filed: 04/10/21 16:26> Status: Acute <Tamika Mirza PA-C - Last Filed: 04/10/21 16:26> Assessment and Plan: Patient presented with complaints of weakness. She states she is not able to reposition herself in bed, states she was crawling at home to get around B12 and folate WNL MRI L spine w/ mild spondylosis, otherwise unremarkable I have witnessed her moving her legs when I squeeze on her calves or feet, complains of pain. Also jerks legs back when trying to do babinski which was negative bilaterally. Appreciate PT/OT eval however patient refuses at times neuro not available for consults this week possibly malingering vs hysteria vs conversion disorder vs schizophrenia?? discussed case with attending physician Dr. Lamb who evaluated patient and also agrees there is likely a psych component discussed case w/ psychiatrist Dr. Kessler. I asked patient if she was okay speaking with him and she agreed. Several hours later he came in to see her and she refused to speak with him. Today she states she does not remember this happening. Furthermore she reports she has her own psychiatrist but does not remember her name and cannot delineate at first what she sees him for. When prompted with anxiety, depression, bipolar, schizophrenia, she states she thinks anxiety and takes offense to being asked if she has bipolar disorder or schizophrenia. <Tamika Mirza PA-C - Last Filed: 04/10/21 16:26> (2) Acute metabolic encephalopathy: Code(s): G93.41 - Metabolic encephalopathy <GARRETT Dickerson Last Filed: 04/10/21 16:26> Status: Acute <Tamika Mirza PA-C - Last Filed: 04/10/21 16:26> Assessment and Plan: Head CT showed no acute findings Brain MRI also with no acute findings Ammonia is normal. B12 and folate also normal. No signs/symptoms to suggest acute infection unclear whether there is truly memory loss/confusion or patient has some psychiatric issues going on discussed with psychiatrist who recommends completing a mini mental status exam she is a/ox 3-4 but takes a lot of time and contemplating to answer these questions <GARRETT Dickerson Last Filed: 04/10/21 16:26> (3) Acidosis, lactic: Code(s): E87.2 - Acidosis <GARRETT Dickerson Last Filed: 04/10/21 16:26> Status: Acute <GARRETT Dickerson Last Filed: 04/10/21 16:26> Assessment and Plan: Resolved. Lactic acid 2.6 on presentation Etiology for this unclear, no evidence of infection, likely secondary to dehydration Improved with IV fluids to 2.0 Metformin on hold <GARRETT Dickerson Last Filed: 04/10/21 16:26> (4) Hypothyroidism: Code(s): E03.9 - Hypothyroidism, unspecified <GARRETT Dickerson Last Filed: 04/10/21 16:26> Status: Acute <GARRETT Dickerson Last Filed: 04/10/21 16:26> Assessment and Plan: TSH is elevated at 9.99. T4 normal Patient is on levothyroxine 125 mcg daily She admits that she probably has not been taking her levothyroxine appropriately At this time will not make any adjustments to her medication dosage. Discussed importance of taking this medication daily She will need repeat reflex TSH in 4-6 weeks as an outpatient <GARRETT Dickerson Last Filed: 04/10/21 16:26> (5) Diabetes mellitus: Code(s): E11.9 - Type 2 diabetes mellitus without complications <GARRETT Dickerson Last Filed: 04/10/21 16:26> Status: Acute <GARRETT Dickerson Last Filed: 04/10/21 16:26> Assessment and Plan: Blood sugars elevated today 150-250 Continue Accu-Cheks, moderate dose sliding scale insulin, hypoglycemic protocol Metformin is on hold A1c 6.9 Monitor blood s
[2021-04-10 12:09] LABS: Glucose Point of Care 191 mg/dl (65-105)
[2021-04-10 13:25] LABS: Iron 41 ug/dL (37-170)
[2021-04-10 13:38] LABS: Percent Iron Saturation 19 % (20-50)
[2021-04-10 17:00] LABS: Glucose Point of Care 194 mg/dl (65-105)
[2021-04-10] MEDS: THIAMINE HCL 200 MG/2 ML VIAL 100 MG IV PUSH (18:25)
[2021-04-10 20:00] LABS: Serum Qual hCG Negative
[2021-04-10 20:03] LABS: SPREG INTERNAL CONTROL Positive
[2021-04-10] MEDS: MELATONIN 5 MG TABLET PO (20:15)
[2021-04-10 20:27] LABS: Glucose Point of Care 175 mg/dl (65-105)
[2021-04-11] VITALS (9 sets, daily range): BP systolic 108–112; BP diastolic 66–72; PULSE 92–99; RESP 15–21; TEMP 35.8–36.4; O2SAT 100
[2021-04-11] MEDS: LEVOTHYROXINE SODIUM 125 MCG TABLET PO (06:06)
[2021-04-11 07:54] LABS: Glucose Point of Care 142 mg/dl (65-105)
[2021-04-11] MEDS: LIPASE/AMYLASE/PROTEASE 12,000 UNITS CAP 1 CAP PO ×3 (08:03→16:38)
[2021-04-11] MEDS: ACETAMINOPHEN 325 MG TABLET 650 MG PO (08:03)
[2021-04-11] MEDS: THIAMINE HCL 200 MG/2 ML VIAL 100 MG IV PUSH (08:03)
[2021-04-11] MEDS: POTASSIUM CHLORIDE 20 MEQ TABLET.ER PO ×2 (08:04→16:38)
[2021-04-11] MEDS: ENOXAPARIN 40 MG/0.4 ML SYRINGE SUB-Q (08:04)
[2021-04-11 11:44] LABS: Glucose Point of Care 158 mg/dl (65-105)
--- NOTE | 2021-04-11 13:54 | P.PNIM_ITS ---
Progress Note: A&P Assessment and Plan (1) Weakness: Code(s): R53.1 - Weakness Status: Acute Assessment and Plan: Patient presented with complaints of generalized weakness with paresthesia. * She states she is not able to reposition herself in bed, states she was crawling at home to get around * B12 and folate WNL * MRI L spine w/ mild spondylosis, otherwise unremarkable * MRI brain negative * Appreciate PT/OT eval however patient refuses at times * neuro not available for consults this week * possibly malingering vs hysteria vs conversion disorder vs schizophrenia?? Possible however I Suspect organic neurological disorder particularly some myelopathy or demyelinating disease? Rapidly progressive dementia * She refused to see psychiatrist. Med history does suggest she might have some chronic insomnia/anxiety disorder in the past. We will need to do further workup with lumbar puncture. Check ESR, RPR, Lyme disease, CMV EBV, COVID antibody paraneoplastic syndrome (she has history of pancreatic mass which was not visualized on CT scan of the abdomen this admission with check CA 19 9 level) HIV have been negative she has been replaced with thiamine. No history of alcohol use. No history of illicit drug use. UDS has been clean. COVID test was negative Assess if she had received any new vaccination recently prior to this Mildly hypothyroid Check cortisol level (mild hyponatremia hypotension generalized weakness) Hepatitis panel is negative HIV is negative Will also order EEG Check thyroid antibodies/heavy metal/ceruloplasmin (2) Acute metabolic encephalopathy: Code(s): G93.41 - Metabolic encephalopathy Status: Acute Assessment and Plan: * Head CT showed no acute findings * Brain MRI also with no acute findings * Ammonia is normal. B12 and folate also normal. * No signs/symptoms to suggest acute infection * unclear whether there is truly memory loss/confusion or patient has some psychiatric issues going on * discussed with psychiatrist who recommends completing a mini mental status exam * she is a/ox 3-4 but takes a lot of time and contemplating to answer these questions (3) Acidosis, lactic: Code(s): E87.2 - Acidosis Status: Acute Assessment and Plan: Resolved. * Lactic acid 2.6 on presentation * Etiology for this unclear, no evidence of infection, likely secondary to dehydration * Improved with IV fluids to 2.0 * Metformin on hold (4) Hypothyroidism: Code(s): E03.9 - Hypothyroidism, unspecified Status: Acute Assessment and Plan: TSH is elevated at 9.99. T4 normal * Patient is on levothyroxine 125 mcg daily * She admits that she probably has not been taking her levothyroxine appropriately * At this time will not make any adjustments to her medication dosage. Discussed importance of taking this medication daily * She will need repeat reflex TSH in 4-6 weeks as an outpatient (5) Diabetes mellitus: Code(s): E11.9 - Type 2 diabetes mellitus without complications Status: Acute Assessment and Plan: Blood sugars elevated today 150-250 * Continue Accu-Cheks, moderate dose sliding scale insulin, hypoglycemic protocol * Metformin is on hold * A1c 6.9 * Monitor blood sugars and adjust medication regimen as needed * Diabetic diet * paraesthesias secondary to untreated DM?? (6) Chronic pancreatitis: Code(s): K86.1 - Other chronic pancreatitis Status: Acute Assessment and Plan:
--- NOTE | 2021-04-11 13:54 | PM.IMPN ---
Progress Note: A&P Assessment and Plan (1) Weakness: Code(s): R53.1 - Weakness Status: Acute Assessment and Plan: Patient presented with complaints of generalized weakness with paresthesia. She states she is not able to reposition herself in bed, states she was crawling at home to get around B12 and folate WNL MRI L spine w/ mild spondylosis, otherwise unremarkable MRI brain negative Appreciate PT/OT eval however patient refuses at times neuro not available for consults this week possibly malingering vs hysteria vs conversion disorder vs schizophrenia?? Possible however I Suspect organic neurological disorder particularly some myelopathy or demyelinating disease? Rapidly progressive dementia She refused to see psychiatrist. Med history does suggest she might have some chronic insomnia/anxiety disorder in the past. We will need to do further workup with lumbar puncture. Check ESR, RPR, Lyme disease, CMV EBV, COVID antibody paraneoplastic syndrome (she has history of pancreatic mass which was not visualized on CT scan of the abdomen this admission with check CA 19 9 level) HIV have been negative she has been replaced with thiamine. No history of alcohol use. No history of illicit drug use. UDS has been clean. COVID test was negative Assess if she had received any new vaccination recently prior to this Mildly hypothyroid Check cortisol level (mild hyponatremia hypotension generalized weakness) Hepatitis panel is negative HIV is negative Will also order EEG Check thyroid antibodies/heavy metal/ceruloplasmin (2) Acute metabolic encephalopathy: Code(s): G93.41 - Metabolic encephalopathy Status: Acute Assessment and Plan: Head CT showed no acute findings Brain MRI also with no acute findings Ammonia is normal. B12 and folate also normal. No signs/symptoms to suggest acute infection unclear whether there is truly memory loss/confusion or patient has some psychiatric issues going on discussed with psychiatrist who recommends completing a mini mental status exam she is a/ox 3-4 but takes a lot of time and contemplating to answer these questions (3) Acidosis, lactic: Code(s): E87.2 - Acidosis Status: Acute Assessment and Plan: Resolved. Lactic acid 2.6 on presentation Etiology for this unclear, no evidence of infection, likely secondary to dehydration Improved with IV fluids to 2.0 Metformin on hold (4) Hypothyroidism: Code(s): E03.9 - Hypothyroidism, unspecified Status: Acute Assessment and Plan: TSH is elevated at 9.99. T4 normal Patient is on levothyroxine 125 mcg daily She admits that she probably has not been taking her levothyroxine appropriately At this time will not make any adjustments to her medication dosage. Discussed importance of taking this medication daily She will need repeat reflex TSH in 4-6 weeks as an outpatient (5) Diabetes mellitus: Code(s): E11.9 - Type 2 diabetes mellitus without complications Status: Acute Assessment and Plan: Blood sugars elevated today 150-250 Continue Accu-Cheks, moderate dose sliding scale insulin, hypoglycemic protocol Metformin is on hold A1c 6.9 Monitor blood sugars and adjust medication regimen as needed Diabetic diet paraesthesias secondary to untreated DM?? (6) Chronic pancreatitis: Code(s): K86.1 - Other chronic pancreatitis Status: Acute Assessment and Plan: CT abdomen/pelvis shows chronic pancreatitis She does have a history of pancreatic duct stent, though this was not visualized on CT Continue Creon. Patient takes 6000 units TID at home, though this dosage is nonformulary and she does not have anyone to bring from home Will proceed with Creon 32657 units TID during admission (7) Bilateral leg paresthesia: Code(s): R20.2 - Paresthesia of skin Status: Acute Assessment and
[2021-04-11 15:41] LABS: Erythrocyte Sedimentation Rate 92 mm/hr (0-20)
--- NOTE | 2021-04-11 16:10 | PCPTNOTE ---
[id number] assisted nursing staff with transfer with [facility] to commode and then to bed.
[2021-04-11 16:16] LABS: Glucose Point of Care 135 mg/dl (65-105)
[2021-04-11] MEDS: MELATONIN 5 MG TABLET PO (20:46)
[2021-04-11 21:39] LABS: Glucose Point of Care 181 mg/dl (65-105)
[2021-04-12] VITALS (7 sets, daily range): BP systolic 112–117; BP diastolic 76–86; PULSE 84–100; RESP 12–21; TEMP 36.1; O2SAT 99–100
--- NOTE | 2021-04-12 05:27 | PC.NURSE ---
when rounding and checking on patient she states she needs her pad changed that it is wet. Patients bed is wet with urine. Throughout the night patient has been calling to use the bedpan. I asked patient if she was not able to tell that she needed to urinate. She said she thinks she may have trouble knowing when she needs to urinate.
[2021-04-12 05:39] LABS: Cortisol Baseline 5.22 ug/dL
[2021-04-12] MEDS: LEVOTHYROXINE SODIUM 125 MCG TABLET PO (06:00)
[2021-04-12 07:48] LABS: Glucose Point of Care 148 mg/dl (65-105)
[2021-04-12] MEDS: LIPASE/AMYLASE/PROTEASE 12,000 UNITS CAP 1 CAP PO ×3 (09:13→16:38)
[2021-04-12 09:14] LABS: INR 1.1; Prothrombin Time 13.7 Seconds (11.1-14.7)
[2021-04-12] MEDS: POTASSIUM CHLORIDE 20 MEQ TABLET.ER PO ×2 (09:14→16:38)
[2021-04-12] MEDS: THIAMINE HCL 200 MG/2 ML VIAL 100 MG IV PUSH (09:14)
[2021-04-12 09:17] LABS: Partial Thromboplastin Time 33.6 SECONDS (22.3-36.8)
[2021-04-12] MEDS: ACETAMINOPHEN 325 MG TABLET 650 MG PO (09:18)
--- NOTE | 2021-04-12 10:08 | PCPTNOTE ---
Patient unavailable for Physical Therapy treatment at this time; patient out of room for testing.
[2021-04-12 11:13] LABS: Glucose CSF 80 mg/dL (40-70); Total Protein CSF 57 mg/dL (12-60)
[2021-04-12 11:28] LABS: Glucose Point of Care 142 mg/dl (65-105)
[2021-04-12 11:45] LABS: Appearance CSF Clear (Clear); CSF source CSF
[2021-04-12 11:46] LABS: Color CSF Colorless (Colorless); Lymphocytes CSF 100 % (40-80); Nucleated Cell CSF 7 /uL (0-5); Red Blood Cell CSF 0 (0-2)
--- NOTE | 2021-04-12 14:55 | P.PNIM_ITS ---
Progress Note: A&P Assessment and Plan (1) Weakness: Code(s): R53.1 - Weakness Status: Acute Assessment and Plan: Patient presented with complaints of generalized weakness with paresthesia. * She states she is not able to reposition herself in bed, states she was crawling at home to get around * B12 and folate WNL * MRI L spine w/ mild spondylosis, otherwise unremarkable * MRI brain negative * Appreciate PT/OT eval however patient refuses at times * neuro not available for consults this week * possibly malingering vs hysteria vs conversion disorder vs schizophrenia?? Possible however I Suspect organic neurological disorder particularly some myelopathy or demyelinating disease? Rapidly progressive dementia * She refused to see psychiatrist. Med history does suggest she might have some chronic insomnia/anxiety disorder in the past. We will need to do further workup with lumbar puncture. Check ESR, RPR, Lyme disease, CMV EBV, COVID antibody paraneoplastic syndrome (she has history of pancreatic mass which was not visualized on CT scan of the abdomen this admission with check CA 19 9 level) HIV have been negative she has been replaced with thiamine. No history of alcohol use. No history of illicit drug use. UDS has been clean. COVID test was negative Assess if she had received any new vaccination recently prior to this Mildly hypothyroid Check cortisol level (mild hyponatremia hypotension generalized weakness) Hepatitis panel is negative HIV is negative Will also order EEG Check thyroid antibodies/heavy metal/ceruloplasmin Lumbar puncture today with lymphocytic pleocytosis. Suggestive of viral meningitis. Start acyclovir 10 mg per kg every 8 hours. Discussed with neurologist at [facility] for transfer and accepts her for transfer (2) Acute metabolic encephalopathy: Code(s): G93.41 - Metabolic encephalopathy Status: Acute Assessment and Plan: * Head CT showed no acute findings * Brain MRI also with no acute findings * Ammonia is normal. B12 and folate also normal. * No signs/symptoms to suggest acute infection * unclear whether there is truly memory loss/confusion or patient has some psychiatric issues going on * discussed with psychiatrist who recommends completing a mini mental status exam * she is a/ox 3-4 but takes a lot of time and contemplating to answer these questions (3) Acidosis, lactic: Code(s): E87.2 - Acidosis Status: Acute Assessment and Plan: Resolved. * Lactic acid 2.6 on presentation * Etiology for this unclear, no evidence of infection, likely secondary to dehydration * Improved with IV fluids to 2.0 * Metformin on hold (4) Hypothyroidism: Code(s): E03.9 - Hypothyroidism, unspecified Status: Acute Assessment and Plan: TSH is elevated at 9.99. T4 normal * Patient is on levothyroxine 125 mcg daily * She admits that she probably has not been taking her levothyroxine appropriately * At this time will not make any adjustments to her medication dosage. Discussed importance of taking this medication daily * She will need repeat reflex TSH in 4-6 weeks as an outpatient (5) Diabetes mellitus: Code(s): E11.9 - Type 2 diabetes mellitus without complications Status: Acute Assessment and Plan: Blood sugars elevated today 150-250 * Continue Accu-Cheks, moderate dose sliding scale insulin, hypoglycemic protocol * Metformin is on hold * A1c 6.9 * Monitor blood sugars and adjust medication regimen as n
--- NOTE | 2021-04-12 14:55 | PM.IMPN ---
Progress Note: A&P Assessment and Plan (1) Weakness: Code(s): R53.1 - Weakness Status: Acute Assessment and Plan: Patient presented with complaints of generalized weakness with paresthesia. She states she is not able to reposition herself in bed, states she was crawling at home to get around B12 and folate WNL MRI L spine w/ mild spondylosis, otherwise unremarkable MRI brain negative Appreciate PT/OT eval however patient refuses at times neuro not available for consults this week possibly malingering vs hysteria vs conversion disorder vs schizophrenia?? Possible however I Suspect organic neurological disorder particularly some myelopathy or demyelinating disease? Rapidly progressive dementia She refused to see psychiatrist. Med history does suggest she might have some chronic insomnia/anxiety disorder in the past. We will need to do further workup with lumbar puncture. Check ESR, RPR, Lyme disease, CMV EBV, COVID antibody paraneoplastic syndrome (she has history of pancreatic mass which was not visualized on CT scan of the abdomen this admission with check CA 19 9 level) HIV have been negative she has been replaced with thiamine. No history of alcohol use. No history of illicit drug use. UDS has been clean. COVID test was negative Assess if she had received any new vaccination recently prior to this Mildly hypothyroid Check cortisol level (mild hyponatremia hypotension generalized weakness) Hepatitis panel is negative HIV is negative Will also order EEG Check thyroid antibodies/heavy metal/ceruloplasmin Lumbar puncture today with lymphocytic pleocytosis. Suggestive of viral meningitis. Start acyclovir 10 mg per kg every 8 hours. Discussed with neurologist at [facility] for transfer and accepts her for transfer (2) Acute metabolic encephalopathy: Code(s): G93.41 - Metabolic encephalopathy Status: Acute Assessment and Plan: Head CT showed no acute findings Brain MRI also with no acute findings Ammonia is normal. B12 and folate also normal. No signs/symptoms to suggest acute infection unclear whether there is truly memory loss/confusion or patient has some psychiatric issues going on discussed with psychiatrist who recommends completing a mini mental status exam she is a/ox 3-4 but takes a lot of time and contemplating to answer these questions (3) Acidosis, lactic: Code(s): E87.2 - Acidosis Status: Acute Assessment and Plan: Resolved. Lactic acid 2.6 on presentation Etiology for this unclear, no evidence of infection, likely secondary to dehydration Improved with IV fluids to 2.0 Metformin on hold (4) Hypothyroidism: Code(s): E03.9 - Hypothyroidism, unspecified Status: Acute Assessment and Plan: TSH is elevated at 9.99. T4 normal Patient is on levothyroxine 125 mcg daily She admits that she probably has not been taking her levothyroxine appropriately At this time will not make any adjustments to her medication dosage. Discussed importance of taking this medication daily She will need repeat reflex TSH in 4-6 weeks as an outpatient (5) Diabetes mellitus: Code(s): E11.9 - Type 2 diabetes mellitus without complications Status: Acute Assessment and Plan: Blood sugars elevated today 150-250 Continue Accu-Cheks, moderate dose sliding scale insulin, hypoglycemic protocol Metformin is on hold A1c 6.9 Monitor blood sugars and adjust medication regimen as needed Diabetic diet paraesthesias secondary to untreated DM?? (6) Chronic pancreatitis: Code(s): K86.1 - Other chronic pancreatitis Status: Acute Assessment and Plan: CT abdomen/pelvis shows chronic pancreatitis She does have a history of pancreatic duct stent, though this was not visualized on CT Continue Creon. Patient takes 6000 units TID at home, though this dosage is nonformulary and sh
--- NOTE | 2021-04-12 15:50 | PM.TDS ---
Transfer Discharge Sum: Prov Provider Date of admission: 04/08/21 13:44 Primary care physician: Jesenia Mckeon, Admitting clinician: Davonte Mata MD DS: Admitting Diagnosis Discharge Date 04/12/2021 Admitting Diagnosis weakness and confusion DS: Discharge Diagnosis Discharge Diagnosis (1) Weakness: Code(s): R53.1 - Weakness Status: Acute Assessment and Plan: Patient presented with complaints of generalized weakness with paresthesia in both upper and lower extremities that started about a week or 2 prior to admission. Apparently she was crawling at home to get around. Evaluation in the ER noted with mild dehydration normal vitals and admitted for further evaluation and management. Initial CT scan of the head was normal Further workup with MRI brain came back negative. B12 and folate within normal limit MRI lumbar spine with mild spondylosis MRI cervical spine with moderate spondylosis. She has refused to work with PT OT and also had inconsistent examination findings and hence psychological diagnosis were entertained. She also refused to speak with psychiatrist that was consulted. in terms of possible organic neurological disorder, she is noted to have a reflexia diffusely present cognitive impairment along with sensory symptoms and weakness lower extremities more than upper extremities suggesting possibility of acute/subacute demyelinating polyneuropathy or rapid progressive dementia Further evaluation with lumbar puncture revealed lymphocytic pleocytosis with WBC of 7 100% lymphocytes. protein is normal and glucose is normal. Started on acyclovir 10 milligram/kilogram every 8 hours. tests for CSF herpes West Nile VDRL cryptococcus Pending UDS is negative alcohol level is negative No history of drug use in the past Mildly hypothyroidism with TSH of 10 on admission Cortisol level 5 at 5:00 a.m. which is within range at that time HIV is negative hepatitis panel is negative COVID test done is negative however COVID antibody was reactive She has had received 2 doses of COVID vaccine in 2020 has not received booster reviewed her vaccination records She has history of pancreatic mass which was not visualized on CT scan of the abdomen this admission ordered CA 19 9 which is pending for possibility of paraneoplastic syndrome She was replaced with thiamine for possible thiamine deficiencyWith no improvement in her symptoms ESR was elevated at 92 RPR, Lyme disease, CMV, EBV pending at the time of discharge Heavy metal testing was also ordered which is pending Thyroid peroxidase ceruloplasmin pending PT OT has evaluated the patient and suggested rehab placement Discussed findings and impressions with [facility] with hospitalist and neurologist, excepts her for transfer for further evaluation. (2) Acute metabolic encephalopathy: Code(s): G93.41 - Metabolic encephalopathy Status: Acute Assessment and Plan: Head CT showed no acute findings Brain MRI also with no acute findings Ammonia is normal. B12 and folate also normal. No signs/symptoms to suggest acute infection unclear whether there is truly memory loss/confusion or patient has some psychiatric issues going on discussed with psychiatrist who recommends completing a mini mental status exam she is a/ox 3-4 but takes a lot of time and contemplating to answer these questions (3) Acidosis, lactic: Code(s): E87.2 - Acidosis Status: Acute Assessment and Plan: Resolved. Lactic acid 2.6 on presentation Etiology for this unclear, no evidence of infection, likely secondary to dehydration Improved with IV fluids to 2.0 Metformin on hold (4) Hypothyroidism: Code(s): E03.9 - Hypothyroidism, unspecified Status: Acute Assessment and Plan: TSH is elevated at 9.99. T4 normal Patient is on levothyroxine 125 mcg daily She admits that she probably has not been
[2021-04-12] MEDS: INSULIN ASPART (*BKC) 100 UNITS/ML SUB-Q (16:40)
[2021-04-12 16:42] LABS: Glucose Point of Care 246 mg/dl (65-105)
[2021-04-13 08:04] LABS: Rapid Plasma Reagin Non-Reactive (NonReactive)
[2021-04-14 14:51] LABS: Zinc 64 mcg/dL (60-130)
[2021-04-14 15:28] LABS: Arsenic, Blood <3 mcg/L (<23); Lead, Blood 1 mcg/dL (<5); Mercury, Blood <4 mcg/L (<=10)
[2021-04-14 22:27] LABS: CMV DNA Quant PCR IU/mL Not Detected; Cytomegalovirus DNA Quant PCR Not Detected log IU/mL; Cytomegalovirus DNA Source Serum
[2021-04-15 03:21] LABS: Thyroid Peroxidase Antibodies 4 IU/mL (<9)
[2021-04-15 05:35] LABS: CA 19-9 16 U/mL (<34)
[2021-04-15 13:24] LABS: Ceruloplasmin 24 mg/dL (18-53)
[2021-04-15 15:49] LABS: Varicella IgM Antibody <=0.90 (<=0.90)
[2021-04-15 17:31] LABS: West Nile Virus, IgM <0.90 index (<0.90)
[2021-04-15 20:37] LABS: Lyme Disease Ab (IgM), Blot Negative (Negative); Lyme Disease Ab(IgG), Blot Negative (Negative)
[2021-04-15 22:53] LABS: JC Polyoma Virus DNA, QL Plasma; JC Polyoma Virus Source Not Detected (Not Detected)
[2021-04-16 00:18] LABS: Anti Nuclear Antibody Titer 1:40 (Negative)
[2021-04-17 03:27] LABS: Albumin, CSF 29.3 mg/dL (8.0-42.0); Albumin, Serum 3.2 g/dL (3.5-5.2); IgG Index, CSF 0.51 (<0.66); IgG, CSF 6.3 mg/dL (0.8-7.7); Immunoglobulin G, Serum 1360 mg/dL (600-1640); Myelin Basic Protein, CSF <2.0 mcg/L (2.0-4.0)
[2021-04-17 12:03] LABS: Herpes Simplex Type 1 DNA PCR Not Detected (Not Detected); Herpes Simplex Type 2 DNA PCR Not Detected (Not Detected)
[2021-04-17 19:11] LABS: Acetylchol Receptor Binding Ab <0.30 nmol/L
[2021-04-17 21:40] LABS: Epstein Barr Virus DNA PCR Not Detected (Not Detected); Source Epstein Barr Virus CSF
[2021-04-19 00:47] LABS: Cryptococcus Antigen Not Detected (Not Detected); Cryptococcus Specimen Source Serum
[2021-04-20 22:36] LABS: Coccidioides Ab to F Ag (IgG) NEGATIVE; Coccidioides Ab to TP Ag (IgM) NEGATIVE
[2021-04-21 15:10] LABS: VDRL Quantitative CSF Nonreactive (Nonreactive)
[2021-04-23 14:33] LABS: Collection Sample Venous
== END 2021-04-12 17:43 | disposition short-term general hospital (02) | DRG 947 ==
LOC: ANHED 22:09 → ANH2MED 04-07 00:15
PROVIDERS: Internal Medicine; Physician Assistant; Admitting Provider Internal Medicine; Emergency Provider Emergency Medicine; PCP Family Medicine; Visit Provider Internal Medicine
DX: R53.1 Weakness (principal); G93.41 Metabolic encephalopathy; K86.1 Other chronic pancreatitis; E87.2 Acidosis; E87.1 Hypo-osmolality and hyponatremia; E11.42 Type 2 diabetes mellitus with diabetic polyneuropathy; E86.0 Dehydration; R20.2 Paresthesia of skin; R20.0 Anesthesia of skin; K86.89 Other specified diseases of pancreas; F03.90 Unspecified dementia, unspecified severity, without behavioral disturbance, psychotic disturbance, mood disturbance, and anxiety; Z20.822 Contact with and (suspected) exposure to COVID-19; E03.9 Hypothyroidism, unspecified; M54.9 Dorsalgia, unspecified; Z96.89 Presence of other specified functional implants
CPT/HCPCS: 36415; 62328; 70450; 70553; 71046; 72141; 72148; 74177; 80048; 80053; 80074; 80307; 81001; 82040; 82042; 82140; 82175; 82390; 82533; 82550; 82607; 82728; 82746; 82784; 82945; 82948; 83036; 83540; 83550; 83605; 83655; 83690; 83735; 83825; 83873; 83916; 84157; 84238; 84439; 84443; 84446; 84480; 84484; 84630; 84703; 85025; 85027; 85610; 85652; 85730; 86038; 86039; 86140; 86301; 86376; 86403; 86413; 86592; 86617; 86635; 86703; 86769; 86787; 86788; 87015; 87040; 87070; 87102; 87116; 87205; 87206; 87497; 87529; 87798; 88104; 88108; 89051; 93005; 93970; 96360; 96361; 97110; 97161; 97165; 97530; 97535; 99285; A9270; A9577; C9803; G0378; G0432; J0133; J1650; J1815; J3411; J7030; Q9967; U0003; U0005

== ENCOUNTER 2022-10-31 14:46 | Emergency (ER) | payer OTHER, SELFPAY ==
[2022-10-31 14:48] VITALS: BP 106/73; PULSE 97; RESP 18; TEMP 36.4; O2SAT 100
[2022-10-31 14:58] VITALS: RESP 18; O2SAT 98
[2022-10-31 15:12] LABS: Glucose Point of Care 140 mg/dl (65-105)
--- NOTE | 2022-10-31 15:18 | ED.GENADULT ---
HPI - General Adult General Chief complaint: Anxiety Stated complaint: anxiety Time Seen by Provider: 10/31/22 15:05 Source: patient Mode of arrival: EMS Limitations: no limitations History of Present Illness HPI narrative: This is a 52-year-old female with PMH of diabete, anxiety s who presents to the ED via EMS with chief complaint of possible anxiety attack occurring this afternoon. She is coming from [facility] as she is therefore peripheral neuropathy. She is getting therapy with for this. She reports today while talking to one of the staff members she started to feel a possible panic attack coming on. She states she started to feel anxious, shaky and sweaty. She states this is happened multiple times in the past and she normally takes clonazepam to abort panic attacks. She states that they were unable to give her any Klonopin at the nursing care facility. She was resting in her room when they sent her to the ER for further evaluation. She states that she has absolutely no complaints at this time. She would like to go back home and get some rest. Denies fevers, chills, abdominal pain, shortness of breath, chest pain, LOC, fall. Related Data Home Medications Medication Instructions Recorded Confirmed ergocalciferol (vitamin D2) 1,250 1,250 mcg PO DAILY 10/09/19 04/07/21 mcg (50,000 unit) capsule levothyroxine 100 mcg tablet 125 mcg PO DAILY 04/07/21 04/07/21 [id number] 1 cap PO DAILY 04/07/21 04/07/21 6,000-19,000-30,000 unit capsule,delayed rel (Creon) meclizine 25 mg tablet 25 mg PO TID PRN Dizziness 04/07/21 04/07/21 metformin 500 mg tablet,extended 1,000 mg PO DAILY 04/07/21 04/07/21 release 24 hr Allergies Allergy/AdvReac Type Severity Reaction Status Date / Time hydromorphone Allergy Itching Verified 10/31/22 14:57 Review of Systems Review of Systems: All systems as dictated in [facility] Past Medical History Medical History (Updated 10/31/22 @ 15:23 by James Berger PA-C) Hypothyroidism Pancreatic mass Presence of pancreatic duct stent Surgical History Surgical History (Updated 09/24/19 @ 11:48 by Bee Wilkins MD) No pertinent past surgical history Social History Social History (Updated 04/06/21 @ 17:43 by Nati Kimble PA-C) Smoking packs per day: 1 Smoking cigarettes per day: 20.0 Years smoked: 25 Smoking pack-years: 25.00 Smoking status: Former smoker Tobacco type: cigarettes Second hand tobacco smoke exposure: Yes Alcohol intake: current Drinks per week: 3 Substance use: never Substance use type: does not use Gender identity (if verbalized by the patient): Female Spiritual care concerns: No Exam Narrative: GENERAL: Well-appearing, well-nourished, and in no acute distress. HEAD: Normocephalic, atraumatic. EYES: PERRLA and EOMI. ENT: Nares clear, no rhinorrhea or epistaxis. Mucous membranes moist. Oropharynx without tonsillar hypertrophy exudate or other lesions. NECK: Supple. No adenopathy or masses. CHEST: No respiratory distress. Clear to auscultation. No wheezes rales or rhonchi HEART: Regular rate and rhythm. No murmur heard. Normal peripheral pulses. ABDOMEN: Soft, nontender, nondistended, normal active bowel sounds. MSK: Normal range of motion. No edema. SKIN: Warm, dry, no rash. NEURO: Alert and oriented x3. No focal deficits. PSYCH: Normal mood and affect. Good historian, good insight. Course Vital Signs Vital signs: Vital Signs Temperature 97.5 F L 10/31/22 14:48 Pulse Rate 97 10/31/22 14:48 Respiratory Rate 18 10/31/22 14:48 Blood Pressure 106/73 10/31/22 14:48 Pulse Oximetry 100 10/31/22 14:48 Oxygen Delivery Room Air 10/31/22 14:48 Temperature 97.5 F L 10/31/22 14:48 Pulse Rate 97 10/31/22 14:48 Respiratory Rate 18 10/31/22 14:58 Blood Pressure 106/73 10/31/22 14:48 Pulse Oximetry 98 10/31/22 14:58 Oxygen Delivery Room Air 0
== END 2022-10-31 15:36 ==
LOC: ANHED 15:31
PROVIDERS: Emergency Provider Physician Assistant
DX: F41.9 Anxiety disorder, unspecified (principal); E03.9 Hypothyroidism, unspecified; Z87.891 Personal history of nicotine dependence; Z79.84 Long term (current) use of oral hypoglycemic drugs
CPT/HCPCS: 82948; 99282

== ENCOUNTER 2022-11-21 12:16 | Emergency (ER) | payer OTHER, SELFPAY ==
[2022-11-21 12:24] VITALS: BP 103/57; PULSE 78; RESP 18; TEMP 36.1; O2SAT 100
--- NOTE | 2022-11-21 12:34 | ED.GENADULT ---
HPI - General Adult General Chief complaint: Recheck/Abnormal Lab/Rx Stated complaint: diabetic neuropathy, out of meds Time Seen by Provider: 11/21/22 12:34 Source: patient and family Mode of arrival: ambulatory Limitations: no limitations History of Present Illness HPI narrative: 52 years old -L[place] female got discharged from assisted 6 days ago without 3 feeling her home medications which include Related Data Home Medications Medication Instructions Recorded Confirmed ergocalciferol (vitamin D2) 1,250 1,250 mcg PO DAILY 10/09/19 04/07/21 mcg (50,000 unit) capsule levothyroxine 100 mcg tablet 125 mcg PO DAILY 04/07/21 04/07/21 [id number] 1 cap PO DAILY 04/07/21 04/07/21 6,000-19,000-30,000 unit capsule,delayed rel (Creon) meclizine 25 mg tablet 25 mg PO TID PRN Dizziness 04/07/21 04/07/21 metformin 500 mg tablet,extended 1,000 mg PO DAILY 04/07/21 04/07/21 release 24 hr Allergies Allergy/AdvReac Type Severity Reaction Status Date / Time hydromorphone Allergy Itching Verified 11/21/22 12:20 REPLACED BY [facility] Past Medical History Medical History (Updated 11/21/22 @ 12:47 by Chrystal Bonilla MD) Hypothyroidism Pancreatic mass Presence of pancreatic duct stent Surgical History Surgical History (Updated 09/24/19 @ 11:48 by Bee Wilkins MD) No pertinent past surgical history Social History Social History (Updated 04/06/21 @ 17:43 by Nati Kimble PA-C) Smoking packs per day: 1 Smoking cigarettes per day: 20.0 Years smoked: 25 Smoking pack-years: 25.00 Smoking status: Former smoker Tobacco type: cigarettes Second hand tobacco smoke exposure: Yes Alcohol intake: current Drinks per week: 3 Substance use: never Substance use type: does not use Gender identity (if verbalized by the patient): Female Spiritual care concerns: No Course Vital Signs Vital signs: Vital Signs Temperature 36.1 C L 11/21/22 12:24 Pulse Rate 78 11/21/22 12:24 Respiratory Rate 18 11/21/22 12:24 Blood Pressure 103/57 L 11/21/22 12:24 Pulse Oximetry 100 11/21/22 12:24 Temperature 36.1 C L 11/21/22 12:24 Pulse Rate 78 11/21/22 12:24 Respiratory Rate 18 11/21/22 12:24 Blood Pressure 103/57 L 11/21/22 12:24 Pulse Oximetry 100 11/21/22 12:24 Medical Decision Making Vital Signs Vital Signs: Vital Signs Temperature 36.1 C L 11/21/22 12:24 Pulse Rate 78 11/21/22 12:24 Respiratory Rate 18 11/21/22 12:24 Blood Pressure 103/57 L 11/21/22 12:24 Pulse Oximetry 100 11/21/22 12:24 Temperature 36.1 C L 11/21/22 12:24 Pulse Rate 78 11/21/22 12:24 Respiratory Rate 18 11/21/22 12:24 Blood Pressure 103/57 L 11/21/22 12:24 Pulse Oximetry 100 11/21/22 12:24 Discharge Plan Discharge Clinical Impression: Diabetic neuropathy, Medicine refill Patient Disposition: Home, Self-Care Condition: Stable Instructions: Diabetic Neuropathy (DC), Medicine Refill (ED) Additional Instructions: Go to [facility] for refill, return if symptoms are worsening , call your family physician for appointment, take Tylenol as as needed for aches and pain, continue home medications. Prescriptions: No Action ergocalciferol (vitamin D2) 1,250 mcg (50,000 unit) capsule 1,250 mcg PO DAILY levothyroxine 100 mcg tablet 125 mcg PO DAILY meclizine 25 mg tablet 25 mg PO TID PRN (Reason: Dizziness) metformin 500 mg tablet extended release 24 hr 1,000 mg PO DAILY Creon 6,000-19,000 -30,000 unit capsule,delayed release(DR/EC) 1 cap PO DAILY Follow-up/Referrals: UNKNOWN,DOCTOR [Primary Care Provider] -
== END 2022-11-21 13:10 | disposition home or self-care (01) ==
PROVIDERS: Emergency Provider Emergency Medicine
DX: E11.40 Type 2 diabetes mellitus with diabetic neuropathy, unspecified (principal); Z76.0 Encounter for issue of repeat prescription; E03.9 Hypothyroidism, unspecified; Z87.891 Personal history of nicotine dependence; Z79.84 Long term (current) use of oral hypoglycemic drugs
CPT/HCPCS: 99281